=== PATIENT | female | born 1950 | race Caucasian/White ===

== ENCOUNTER 2016-12-15 09:57 | Emergency (ER) | payer MEDICARE, BC ==
[2016-12-15 12:53] VITALS: BP 164/37
--- NOTE | 2016-12-15 15:19 | EDM.PDOC ---
ED HISTORY OF PRESENT ILLNESS - General Chief Complaint: Cardiovascular Problem Stated Complaint: BLOOD PRESSURE IS OFF Time Seen by Provider: 12/15/16 10:33 Source: Reports: Patient, Other (Notes from dialysis center) History Limitations: Reports: No limitations - History of Present Illness INITIAL COMMENTS - FREE TEXT/NARRATIVE: This lady was at dialysis today and during her dialysis session date the donor floor technician noted blood pressure approximately 260/209. The patient said that at that time she also was experiencing chest heaviness. Patient says that must have lasted about 20 minutes. About 3 minutes after this elevated blood pressure her blood pressure was back to a nice normal range. The dialysis was stopped and she was sent to the clinic. She was seen in clinic and then sent over to the emergency department. The patient says that she feels fine now although a little bit worn out as usual after her dialysis. She's not had any more chest pain - Related Data Allergies/ADRs: Allergies Allergy/AdvReac Type Severity Reaction Status Date / Time No Known Allergies Allergy Verified 09/02/16 15:22 Home Meds: Home Meds Insulin Glarg,Human.Rec.Analog [Lantus Solostar] 53 unit SQ BID 08/08/15 [ History] Lisinopril [Zestril] 10 mg PO DAILY 08/08/15 [History] Sertraline [Zoloft] 100 mg PO DAILY 08/08/15 [History] atorvaSTATin [Lipitor] 20 tab PO DAILY 08/08/15 [History] Cholecalciferol (Vitamin D3) [Vitamin D3] 1,000 unit PO DAILY 12/29/15 [History] Cyanocobalamin (Vitamin B-12) [B-12] 1,000 mcg PO DAILY 12/29/15 [History] Gabapentin [Neurontin] 100 mg PO ASDIRECTED PRN 12/29/15 [History] Insulin Aspart [Novolog Flexpen] 10 unit SQ TID 12/29/15 [History] Aspirin 81 mg PO DAILY 06/29/16 [History] Clopidogrel [Plavix] 75 mg PO DAILY 06/29/16 [History] Epoetin Kevin [Epogen] 0.2 ml SUBCUT ASDIRECTED 06/29/16 [History] Calcium Acetate [PhosLo] 2,001 mg PO TID 12/15/16 [History] Ferrous Sulfate [Ferrous Sulfate] 325 mg PO BID 12/15/16 [History] Multivitamin [Multivitamins] 1 tab PO DAILY 12/15/16 [History] Nebivolol [Bystolic] 10 mg PO BID 12/15/16 [History] oxyCODONE [oxyCODONE] 5 - 10 mg PO ASDIRECTED PRN 12/15/16 [History] Past Medical History HEENT History: Reports: Impaired vision, Macular degeneration Cardiovascular History: Reports: CAD, High cholesterol, Hypertension, Stents Respiratory History: Reports: Asthma Other Respiratory History: uses Cpap. Gastrointestinal History: Reports: Colon polyp Genitourinary History: Reports: Acute renal failure, Other (see below) Other Genitourinary History: dialysis Musculoskeletal History: Reports: Fracture, Other (see below) Other Musculoskeletal History: r ankle fracture and lower leg Psychiatric History: Reports: Depression Endocrine/Metabolic History: Reports: Diabetes, type II, Obesity/BMI 30+ Hematologic History: Reports: Blood transfusion(s) Dermatologic History: Reports: Other (see below) Other Dermatologic History: Open wound rlq abdome. Draining. - Infectious Disease History Infectious Disease History: Reports: MRSA - Past Surgical History HEENT Surgical History: Reports: Cataract surgery Cardiovascular Surgical History: Reports: None Respiratory Surgical History: Reports: None GI Surgical History: Reports: Colonoscopy Female Surgical History: Reports: Hysterectomy Endocrine Surgical History: Reports: None Musculoskeletal Surgical History: Reports: None Social & Family History - Family History Family Medical History: Noncontributory - Tobacco Use Smoking Status *Q: Never Smoker Second Hand Smoke Exposure: No - Caffeine Use Caffeine Use: Reports: Coffee - Recreational Drug Use Recreational Drug Use: No ED ROS GENERAL - Review of Systems Review Of Systems: See Below Constitutional: Reports: other (Typical post dialysis fatigue) HEENT: Reports: No symptoms Respiratory: Reports: No Symptoms Cardiovascular: Reports: Chest pain Endocrine: Reports: no symptoms (See HPI) GI/Abdominal: Reports: No symptoms : Reports: no symptoms ED EXAM, GENERAL - Physical Exam Exam: See Below Exam Limited By: No limitations General Appearance: alert, no apparent distress, obese Eye Exam: bilateral eye: normal inspection Throat/Mouth: Normal inspection Head: atraumatic Respiratory/Chest: lungs clear Cardiovascular: regular rate, rhythm, no murmur Peripheral Pulses: 2+: radial (L), radial (R) GI/Abdominal: soft, non tender Back Exam: normal inspection Extremities: normal inspection, other (She's had 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 She has on a compression stocking) Neurological: alert, oriented Psychiatric: normal affect Skin Exam: Warm, Dry Course - Vital Signs Last Recorded V/S: Last Vital Signs Temp 35.5 C 12/15/16 10:10 Pulse 52 L 12/15/16 12:53 Resp 15 12/15/16 12:53 BP 164/37 H 12/15/16 12:53 Pulse Ox 95 12/15/16 12:53 - Orders/Labs/Meds Orders: Active Orders 24 hr Category Date Time Status EKG Documentation Completion [RC] ASDIRECTED Care 12/15/16 10:48 Active EKG 12 Lead [EK] Urgent Ther 12/15/16 10:48 Ordered Labs: Laboratory Tests 12/15/16 12/15/16 12/15/16 Range/Units 10:44 10:44 10:48 WBC 8.7 (4.5-11.0) K/uL RBC 3.89 (3.30-5.50) M/uL Hgb 12.7 D (12.0-15.0) g/dL Hct 38.0 (36.0-48.0) % MCV 98 (80-98) fL MCH 33 H (27-31) pg MCHC 33 (32-36) % Plt Count 195 (150-400) K/uL Neut % (Auto) 68 H (36-66) % Lymph % (Auto) 20 L (24-44) % [place] % (Auto) 6 (2-6) % Eos % (Auto) 5 H (2-4) % Baso % (Auto) 2 H (0-1) % Sodium 133 L (140-148) mmol/L Potassium 4.6 (3.6-5.2) mmol/L Chloride 92 L (100-108) mmol/L Carbon Dioxide 34 H (21-32) mmol/L Anion Gap 11.6 (5.0-14.0) mmol/L BUN 29 H (7-18) mg/dL Creatinine 4.8 H* (0.6-1.0) mg/dL Est Cr Clr Drug Dosing 10.79 mL/min Estimated GFR (MDRD) 9 L (>60) Glucose 205 H (74-106) mg/dL Calcium 9.1 (8.5-10.1) mg/dL Total Bilirubin 0.3 (0.2-1.0) mg/dL AST 16 (15-37) U/L ALT 25 (12-78) U/L Alkaline Phosphatase 54 (46-116) U/L Troponin I < 0.017 (0.000-0.056) ng/mL Total Protein 8.6 H (6.4-8.2) g/dL Albumin 3.1 L (3.4-5.0) g/dL Globulin 5.5 H (2.3-3.5) g/dL Albumin/Globulin Ratio 0.6 L (1.2-2.2) 12/15/16 Range/Units 13:00 WBC (4.5-11.0) K/uL RBC (3.30-5.50) M/uL Hgb (12.0-15.0) g/dL Hct (36.0-48.0) % MCV (80-98) fL MCH (27-31) pg MCHC (32-36) % Plt Count (150-400) K/uL Neut % (Auto) (36-66) % Lymph % (Auto) (24-44) % [place] % (Auto) (2-6) % Eos % (Auto) (2-4) % Baso % (Auto) (0-1) % Sodium (140-148) mmol/L Potassium (3.6-5.2) mmol/L Chloride (100-108) mmol/L Carbon Dioxide (21-32) mmol/L Anion Gap (5.0-14.0) mmol/L BUN (7-18) mg/dL Creatinine (0.6-1.0) mg/dL Est Cr Clr Drug Dosing mL/min Estimated GFR (MDRD) (>60) Glucose (74-106) mg/dL Calcium (8.5-10.1) mg/dL Total Bilirubin (0.2-1.0) mg/dL AST (15-37) U/L ALT (12-78) U/L Alkaline Phosphatase (46-116) U/L Troponin I < 0.017 (0.000-0.056) ng/mL Total Protein (6.4-8.2) g/dL Albumin (3.4-5.0) g/dL Globulin (2.3-3.5) g/dL Albumin/Globulin Ratio (1.2-2.2) - Re-Assessments/Exams Free Text/Narrative Re-Assessment/Exam: 12/15/16 15:17 an EKG shows a sinus rhythm at 50 beats per minute first-degree AV block QRS is indicate an old inferior or lateral anterior infarct view of QRSs appear to be unchanged from EKG of 07/28/2016 although the infarcts were not noted on the previous EKG. Free Text/Narrative Re-Assessment/Exam: 12/15/16 15:18 The patient was observed here in the ER she has not had any more chest pain her vital said been okay. A initial and 2 hour troponin are both negative. Her discharge from the ER was delayed because of another critical patient Departure - Departure Time of Disposition: 15:19 Disposition: Home, Self-Care 01 Condition: fair Clinical Impression: Chest pain Forms: ED Department Discharge Additional Instructions: Continue all your usual medications and return to dialysis on Tuesday as planned - My Orders Last 24 Hours: My Active Orders 12/15/16 10:48 EKG Documentation Completion [RC] ASDIRECTED EKG 12 Lead [EK] Urgent - Assessment/Plan Last 24 Hours: My Active Orders 12/15/16 10:48 EKG Documentation Completion [RC] ASDIRECTED EKG 12 Lead [EK] Urgent
== END 2016-12-15 15:44 | disposition home or self-care (01) ==
LOC: JP.ED 09:57
DX: R07.9 Chest pain, unspecified (principal); I25.10 Atherosclerotic heart disease of native coronary artery without angina pectoris; E78.00 Pure hypercholesterolemia, unspecified; I10 Essential (primary) hypertension; J45.909 Unspecified asthma, uncomplicated; E11.9 Type 2 diabetes mellitus without complications; E66.9 Obesity, unspecified; Z98.49 Cataract extraction status, unspecified eye; Z90.710 Acquired absence of both cervix and uterus; Z79.4 Long term (current) use of insulin; Z79.82 Long term (current) use of aspirin
CPT/HCPCS: 36415; 80053; 84484; 85025; 93005; 93010; 99284; 99284-25

== ENCOUNTER 2016-12-27 10:06 | Emergency (ER) | payer MEDICARE, BC ==
--- NOTE | 2016-12-27 10:49 | EDM.PDOC ---
ED HISTORY OF PRESENT ILLNESS - General Chief Complaint: Chest Pain Stated Complaint: CHEST PAIN, LOW BLOOD PRESSURE Time Seen by Provider: 12/27/16 10:26 Source: Reports: Patient, Family, Old records, RN notes reviewed History Limitations: Reports: No limitations - History of Present Illness INITIAL COMMENTS - FREE TEXT/NARRATIVE: 66-year-old female presents emergency Department day complaint of chest pressure , she has no history of coronary artery disease had stenting done summer , she also has end-stage renal disease and was currently going through dialysis , during the dialysis run she developed chest pressure with nausea, shortness of breath and clammy feeling lasted 20-25 minutes, she was provided 4 baby aspirin EMS services were called chest pressure has resolved without any other intervention at this time she is asymptomatic. She has known history of small vessel disease - Related Data Allergies/ADRs: Allergies Allergy/AdvReac Type Severity Reaction Status Date / Time No Known Allergies Allergy Verified 12/27/16 10:16 Home Meds: Home Meds Insulin Glarg,Human.Rec.Analog [Lantus Solostar] 53 unit SQ BID 08/08/15 [ History] Lisinopril [Zestril] 10 mg PO DAILY 08/08/15 [History] Sertraline [Zoloft] 100 mg PO DAILY 08/08/15 [History] atorvaSTATin [Lipitor] 20 tab PO DAILY 08/08/15 [History] Cholecalciferol (Vitamin D3) [Vitamin D3] 1,000 unit PO DAILY 12/29/15 [History] Cyanocobalamin (Vitamin B-12) [B-12] 1,000 mcg PO DAILY 12/29/15 [History] Gabapentin [Neurontin] 100 mg PO ASDIRECTED PRN 12/29/15 [History] Insulin Aspart [Novolog Flexpen] 10 unit SQ TID 12/29/15 [History] Aspirin 81 mg PO DAILY 06/29/16 [History] Clopidogrel [Plavix] 75 mg PO DAILY 06/29/16 [History] Epoetin Kevin [Epogen] 0.2 ml SUBCUT ASDIRECTED 06/29/16 [History] Calcium Acetate [PhosLo] 2,001 mg PO TID 12/15/16 [History] Ferrous Sulfate [Ferrous Sulfate] 325 mg PO BID 12/15/16 [History] Multivitamin [Multivitamins] 1 tab PO DAILY 12/15/16 [History] Nebivolol [Bystolic] 10 mg PO BID 12/15/16 [History] oxyCODONE [oxyCODONE] 5 - 10 mg PO ASDIRECTED PRN 12/15/16 [History] Past Medical History HEENT History: Reports: Impaired vision, Macular degeneration Cardiovascular History: Reports: CAD, High cholesterol, Hypertension, Stents Respiratory History: Reports: Asthma Other Respiratory History: uses Cpap. Gastrointestinal History: Reports: Colon polyp Genitourinary History: Reports: Acute renal failure, Dialysis Musculoskeletal History: Reports: Fracture, Other (see below) Other Musculoskeletal History: r ankle fracture and lower leg Psychiatric History: Reports: Depression Endocrine/Metabolic History: Reports: Diabetes, type II, Obesity/BMI 30+ Hematologic History: Reports: Blood transfusion(s) Dermatologic History: Reports: Other (see below) Other Dermatologic History: Open wound rlq abdome. Draining. Healed . - Infectious Disease History Infectious Disease History: Reports: Chicken pox, Shingles - Past Surgical History HEENT Surgical History: Reports: Cataract surgery Cardiovascular Surgical History: Reports: Coronary artery stent GI Surgical History: Reports: Colonoscopy Female Surgical History: Reports: Hysterectomy Endocrine Surgical History: Reports: None Musculoskeletal Surgical History: Reports: Other (see below) Other Musculoskeletal Surgeries/Procedures:: ankle surgery r Social & Family History - Family History Family Medical History: Noncontributory - Tobacco Use Smoking Status *Q: Former Smoker Years of Tobacco use: 3 Packs/Tins Daily: 0.2 Used Tobacco, but Quit: Yes Month Tobacco Last Used: March Second Hand Smoke Exposure: No - Caffeine Use Caffeine Use: Reports: Coffee, Soda - Recreational Drug Use Recreational Drug Use: No ED ROS GENERAL - Review of Systems Review Of Systems: See Below Constitutional: Reports: diaphoresis HEENT: Reports: No symptoms Respiratory: Reports: Shortness of Breath Cardiovascular: Reports: Chest pain GI/Abdominal: Reports: Nausea : Reports: no symptoms Musculoskeletal: Reports: no symptoms Skin: Reports: no symptoms ED EXAM, GENERAL - Physical Exam Exam: See Below Free Text/Narrative:: General: Female, not in any distress, alert and oriented x3 HEENT: head is atraumatic normocephalic, eyes pupils equal round reactive to light, sclera clear no conjunctivitis appreciated. Ears tympanic membranes clear and masters landmarks and light reflex are present bilaterally canals are clear. Nose no septal deviation, nares are clear, no blood present. Mouth mucosa is moist and pink no erythema or exudate noted in soft palate, tongue is midline uvula is midline, dentition is intact. Neck: Supple no thyromegaly no tracheal deviation. Nodes: Cervical nodes subclavicular nodes nontender no palpable lymphadenopathy noted. Lungs: clear to auscultation bilaterally with symmetrical respirations, no adventitious noise appreciated. CV: Regular rate and rhythm S1 and S2 appreciated no murmurs rubs or gallops noted. Abdomen: Soft, obese, nontender, no palpable masses or organomegaly appreciated , no distention no guarding bowel sounds are present, . Neuro: Cranial nerves II through XII grossly intact Skin: Warm and dry, intact Extremities: No significant edema appreciated lower extremities right leg has a healing ulcer digits missing on the right foot Course - Vital Signs Last Recorded V/S: Last Vital Signs Temp 95.9 F 12/27/16 11:20 Pulse 54 L 12/27/16 11:20 Resp 16 12/27/16 11:20 BP 130/54 L 12/27/16 11:20 Pulse Ox 92 L 12/27/16 11:20 - Orders/Labs/Meds Orders: Active Orders 24 hr Category Date Time Status Cardiac Monitoring [RC] .As Directed Care 12/27/16 10:45 Active EKG Documentation Completion [RC] ASDIRECTED Care 12/27/16 10:45 Active Peripheral IV Care [RC] . DIRECTED Care 12/27/16 11:51 Ordered Sodium Chloride 0.9% [Saline Flush] Med 12/27/16 11:51 Ordered 10 ml FLUSH ASDIRECTED PRN Peripheral IV Insertion Adult [OM.PC] Urgent Oth 12/27/16 11:51 Ordered EKG 12 Lead [EK] Stat Ther 12/27/16 10:45 Ordered Medication Orders Sodium Chloride (Saline Flush) 10 ml FLUSH ASDIRECTED PRN PRN Reason: Keep Vein Open Labs: Laboratory Tests 12/27/16 12/27/16 Range/Units 10:50 10:50 WBC 8.7 (4.5-11.0) K/uL RBC 3.62 (3.30-5.50) M/uL Hgb 11.8 L (12.0-15.0) g/dL Hct 35.3 L (36.0-48.0) % MCV 98 (80-98) fL MCH 33 H (27-31) pg MCHC 33 (32-36) % Plt Count 178 (150-400) K/uL Neut % (Auto) 74 H (36-66) % Lymph % (Auto) 15 L (24-44) % [place] % (Auto) 6 (2-6) % Eos % (Auto) 4 (2-4) % Baso % (Auto) 1 (0-1) % Sodium 135 L (140-148) mmol/L Potassium 4.2 (3.6-5.2) mmol/L Chloride 93 L (100-108) mmol/L Carbon Dioxide 35 H (21-32) mmol/L Anion Gap 11.2 (5.0-14.0) mmol/L BUN 28 H (7-18) mg/dL Creatinine 4.9 H* (0.6-1.0) mg/dL Est Cr Clr Drug Dosing 10.57 mL/min Estimated GFR (MDRD) 9 L (>60) Glucose 184 H (74-106) mg/dL Calcium 8.9 (8.5-10.1) mg/dL Total Bilirubin 0.3 (0.2-1.0) mg/dL AST 13 L (15-37) U/L ALT 23 (12-78) U/L Alkaline Phosphatase 66 (46-116) U/L CK-MB (CK-2) 0.2 (0-3.6) mg/mL Troponin I 0.045 (0.000-0.056) ng/mL Total Protein 8.0 (6.4-8.2) g/dL Albumin 2.9 L (3.4-5.0) g/dL Globulin 5.1 H (2.3-3.5) g/dL Albumin/Globulin Ratio 0.6 L (1.2-2.2) Meds: Medications Generic Name Dose Route Start Last Admin Trade Name Freq PRN Reason Stop Dose Admin Sodium Chloride 10 ml 12/27/16 11:51 Saline Flush FLUSH ASDIRECTED PRN Keep Vein Open Departure - Departure Time of Disposition: 11:58 Disposition: DC/Tfer to Acute Hospital 02 Reason for Transfer *Q: Other Condition: good Clinical Impression: Acute coronary syndrome Forms: ED Department Discharge - My Orders Last 24 Hours: My Active Orders 12/27/16 10:45 Cardiac Monitoring [RC] .As Directed EKG Documentation Completion [RC] ASDIRECTED EKG 12 Lead [EK] Stat 12/27/16 11:51 Peripheral IV Care [RC] . DIRECTED Sodium Chloride 0.9% [Saline Flush] 10 ml FLUSH ASDIRECTED PRN Peripheral IV Insertion Adult [OM.PC] Urgent - Assessment/Plan Last 24 Hours: My Active Orders 12/27/16 10:45 Cardiac Monitoring [RC] .As Directed EKG Documentation Completion [RC] ASDIRECTED EKG 12 Lead [EK] Stat 12/27/16 11:51 Peripheral IV Care [RC] . DIRECTED Sodium Chloride 0.9% [Saline Flush] 10 ml FLUSH ASDIRECTED PRN Peripheral IV Insertion Adult [OM.PC] Urgent Plan: Assessment Acuity = acute Site and laterality = coronary syndrome complicating the patient with known history of coronary artery disease, end-stage renal disease on dialysis, diabetes mellitus type 2, hypertension and dyslipidemia Etiology = probable small vessel disease Manifestations = pain, syncope Location of injury = home Lab values = hemoglobin low 11.8 consistent with normochromic anemia sodium low at 135 consistent hyponatremia creatinine elevated at 4.9 consistent chronic renal failure stage CVD, troponin within normal limits 0.045 albumin low at 2.9 consistent hypoalbuminemia, chest x-ray shows no acute process EKG does demonstrate a left bundle branch block and left axis deviation the bundle branch block appears on the 12-15-16 EKG Plan Called and discussed the case with Dr. Treviño hospitalist at [facility] excepted the patient, she will be transferred via EMS services ground Patient was in agreement with the plan all questions were answered This note was dictated using [employer] voice recognition software please call with any questions.
--- NOTE | 2016-12-27 11:07 | CR ---
Chest 1V Frontal HISTORY: Chest pain COMPARISON: Chest x-ray 07/28/2016. FINDINGS: Rotated film to the left. Cardiac size is stable. No acute congestive change or infiltrate s seen.
[2016-12-27] MEDS ORDERED: Sodium Chloride 0.9% 10 ML Syringe FLUSH PRN (11:51)
[2016-12-27 12:44] VITALS: BP 123/31
== END 2016-12-27 12:48 ==
LOC: JP.ED 10:06
DX: I24.9 Acute ischemic heart disease, unspecified (principal); I25.10 Atherosclerotic heart disease of native coronary artery without angina pectoris; I10 Essential (primary) hypertension; E78.00 Pure hypercholesterolemia, unspecified; J45.909 Unspecified asthma, uncomplicated; F32.9 Major depressive disorder, single episode, unspecified; E11.9 Type 2 diabetes mellitus without complications; E66.9 Obesity, unspecified; Z68.42 Body mass index [BMI] 45.0-49.9, adult; Z95.5 Presence of coronary angioplasty implant and graft; Z90.710 Acquired absence of both cervix and uterus; Z98.49 Cataract extraction status, unspecified eye; Z98.890 Other specified postprocedural states; Z87.891 Personal history of nicotine dependence; Z79.4 Long term (current) use of insulin; Z79.82 Long term (current) use of aspirin; Z79.02 Long term (current) use of antithrombotics/antiplatelets; Z79.899 Other long term (current) drug therapy
CPT/HCPCS: 36415; 71010; 80053; 82553; 84484; 85025; 93005; 99285; J7050; 93010

== ENCOUNTER 2016-12-31 10:54 | Emergency (ER) | payer MEDICARE, BC ==
[2016-12-31] MEDS ORDERED: Sodium Chloride 0.9% 1,000 ML IV SCH (11:30)
--- NOTE | 2016-12-31 12:33 | EDM.PDOC ---
[id number] [facility] Time Seen by Provider: 12/31/16 11:05 Source: Reports: Patient, Family History Limitations: Reports: No limitations - History of Present Illness INITIAL COMMENTS - FREE TEXT/NARRATIVE: Pt was seen earlier in the week and she had a near syncopal episode that was accompanied by some mild chest pain. She was sent to [facility]. and was placed on imdur. During her dialysis today she took the imdur. Her meds were not altered at [place]. This am she had a similar episode and nearly passed., out. She arrived with a low bp which got even lower whwn she stood up. Timing/Duration: Reports: minutes: Event Occurred (Where): other (dialysis) Event (Witnessed/Unwitnessed): witnessed Pre Event Symptom(s): Reports: other ( brief syncope. This has happened 2 other times either during or right after dialysis. ) Event Symptoms: Reports: syncope, weakness - Related Data Allergies/ADRs: Allergies Allergy/AdvReac Type Severity Reaction Status Date / Time No Known Allergies Allergy Verified 12/27/16 10:16 Home Meds: Home Meds Insulin Glarg,Human.Rec.Analog [Lantus Solostar] 53 unit SQ BID 08/08/15 [ History] Lisinopril [Zestril] 10 mg PO DAILY 08/08/15 [History] Sertraline [Zoloft] 100 mg PO DAILY 08/08/15 [History] atorvaSTATin [Lipitor] 20 tab PO DAILY 08/08/15 [History] Cholecalciferol (Vitamin D3) [Vitamin D3] 1,000 unit PO DAILY 12/29/15 [History] Cyanocobalamin (Vitamin B-12) [B-12] 1,000 mcg PO DAILY 12/29/15 [History] Gabapentin [Neurontin] 100 mg PO ASDIRECTED PRN 12/29/15 [History] Insulin Aspart [Novolog Flexpen] 10 unit SQ TID 12/29/15 [History] Aspirin 81 mg PO DAILY 06/29/16 [History] Clopidogrel [Plavix] 75 mg PO DAILY 06/29/16 [History] Epoetin Kevin [Epogen] 0.2 ml SUBCUT ASDIRECTED 06/29/16 [History] Calcium Acetate [PhosLo] 2,001 mg PO TID 12/15/16 [History] Ferrous Sulfate [Ferrous Sulfate] 325 mg PO BID 12/15/16 [History] Multivitamin [Multivitamins] 1 tab PO DAILY 12/15/16 [History] Nebivolol [Bystolic] 10 mg PO BID 12/15/16 [History] oxyCODONE [oxyCODONE] 5 - 10 mg PO ASDIRECTED PRN 12/15/16 [History] Isosorbide Mononitrate [Imdur] 1 tab PEGTUBE DAILY 12/31/16 [History] Past Medical History HEENT History: Reports: Impaired vision, Macular degeneration Cardiovascular History: Reports: CAD, High cholesterol, Hypertension, Stents Respiratory History: Reports: Asthma Other Respiratory History: uses Cpap. Gastrointestinal History: Reports: Colon polyp Genitourinary History: Reports: Acute renal failure, Dialysis Other Genitourinary History: dialysis Musculoskeletal History: Reports: Fracture, Other (see below) Other Musculoskeletal History: r ankle fracture and lower leg Psychiatric History: Reports: Depression Endocrine/Metabolic History: Reports: Diabetes, type II, Obesity/BMI 30+ Hematologic History: Reports: Blood transfusion(s) Dermatologic History: Reports: Other (see below) Other Dermatologic History: Open wound rlq abdome. Draining. Healed . - Infectious Disease History Infectious Disease History: Reports: Chicken pox, Shingles - Past Surgical History HEENT Surgical History: Reports: Cataract surgery Cardiovascular Surgical History: Reports: Coronary artery stent GI Surgical History: Reports: Colonoscopy Female Surgical History: Reports: Hysterectomy Endocrine Surgical History: Reports: None Musculoskeletal Surgical History: Reports: Other (see below) Other Musculoskeletal Surgeries/Procedures:: ankle surgery r Social & Family History - Family History Family Medical History: Noncontributory - Tobacco Use Smoking Status *Q: Never Smoker Years of Tobacco use: 3 Packs/Tins Daily: 0.2 Used Tobacco, but Quit: Yes Month Tobacco Last Used: March Hand Smoke Exposure: No - Caffeine Use Caffeine Use: Reports: Coffee, Soda - Recreational Drug Use Recreational Drug Use: No ED ROS GENERAL - Review of Systems Review Of Systems: See Below Constitutional: Reports: weakness HEENT: Reports: No symptoms Respiratory: Reports: No Symptoms Cardiovascular: Reports: No symptoms Endocrine: Reports: no symptoms GI/Abdominal: Reports: No symptoms : Reports: no symptoms Musculoskeletal: Reports: hand pain Skin: Reports: no symptoms - Physical Exam Exam: See Below Text/Narrative:: pt had a near syncopal episode toward the end of dialysis. Exam Limited By: No limitations General Appearance: alert, no apparent distress Ears: normal TMs Nose: normal inspection Throat/Mouth: Normal inspection Head Exam: atraumatic Neck: normal inspection Respiratory/Chest: no respiratory distress Cardiovascular: regular rate, rhythm GI/Abdominal: soft, non tender (Female) Exam: Deferred Rectal (Female) Exam: Deferred Neuro Exam (Abbreviated): alert, oriented, normal cognition Back Exam: normal inspection Extremities: normal inspection Psychiatric: normal affect Course - Vital Signs Last Recorded V/S: Last Vital Signs Temp 36.3 C 12/31/16 14:02 Pulse 53 L 12/31/16 14:02 Resp 14 12/31/16 14:02 BP 106/31 L 12/31/16 14:02 Pulse Ox 97 12/31/16 14:02 Orthostatic Blood Pressure [ 108/77 Sitting] Orthostatic Blood Pressure [ 123/44 Supine] - Orders/Labs/Meds Labs: Laboratory Tests 12/31/16 12/31/16 Range/Units 11:25 11:25 WBC 7.8 (4.5-11.0) K/uL RBC 3.80 (3.30-5.50) M/uL Hgb 12.1 (12.0-15.0) g/dL Hct 36.9 (36.0-48.0) % MCV 97 (80-98) fL MCH 32 H (27-31) pg MCHC 33 (32-36) % Plt Count 196 (150-400) K/uL Neut % (Auto) 70 H (36-66) % Lymph % (Auto) 18 L (24-44) % [place] % (Auto) 8 H (2-6) % Eos % (Auto) 4 (2-4) % Baso % (Auto) 1 (0-1) % Sodium 136 L (140-148) mmol/L Potassium 3.8 (3.6-5.2) mmol/L Chloride 93 L (100-108) mmol/L Carbon Dioxide 35 H (21-32) mmol/L Anion Gap 11.8 (5.0-14.0) mmol/L BUN 17 (7-18) mg/dL Creatinine 3.7 H* (0.6-1.0) mg/dL Est Cr Clr Drug Dosing 14.00 mL/min Estimated GFR (MDRD) 12 L (>60) Glucose 141 H (74-106) mg/dL Calcium 9.0 (8.5-10.1) mg/dL Total Bilirubin 0.3 (0.2-1.0) mg/dL AST 20 (15-37) U/L ALT 30 (12-78) U/L Alkaline Phosphatase 75 (46-116) U/L Total Protein 9.2 H (6.4-8.2) g/dL Albumin 3.3 L (3.4-5.0) g/dL Globulin 5.9 H (2.3-3.5) g/dL Albumin/Globulin Ratio 0.6 L (1.2-2.2) Meds: Medications Discontinued Medications Generic Name Dose Route Start Last Admin Trade Name Freq PRN Reason Stop Dose Admin Sodium Chloride 1,000 mls @ 200 mls/hr 12/31/16 11:30 12/31/16 11:50 Normal Saline IV 200 mls/hr ASDIRECTED COUNT INCLUDES THE [facility] Administration - Re-Assessments/Exams Free Text/Narrative Re-Assessment/Exam: 12/31/16 13:16 Pt was found to have a sig drop in bp and had low orthostatic bp reading. She did start dialysis today with a high bp. 12/31/16 13:22 Pt had good labs except her creatnine was 3.7 which was not unexpected. She was given 700 cc of fluid. Her bp was 120,50 and with standing 80./40, Departure - Departure Time of Disposition: 13:24 Disposition: Home, Self-Care 01 Condition: fair Clinical Impression: Hypotension Instructions: Hypotension, [id number] Referrals: Med Omalley MD [Primary Care Provider] - Forms: ED Department Discharge Care Plan Goals: On the day of dialysis decrease her lisinopril to 1/2 tab. Do not take the imdur during dialysis. On the day of dialysis take imdur 1/2 tab in the evening. Have the net ui developer evaluate and consider taking a little less fluid off. Otherwise continue meds the same.
[2016-12-31 14:03] VITALS: BP 106/31
== END 2016-12-31 14:06 | disposition home or self-care (01) ==
LOC: JP.ED 10:54
DX: I95.9 Hypotension, unspecified (principal); I10 Essential (primary) hypertension; I25.10 Atherosclerotic heart disease of native coronary artery without angina pectoris; E78.00 Pure hypercholesterolemia, unspecified; E11.9 Type 2 diabetes mellitus without complications; E66.9 Obesity, unspecified; Z68.42 Body mass index [BMI] 45.0-49.9, adult; Z79.4 Long term (current) use of insulin; Z79.82 Long term (current) use of aspirin; Z79.899 Other long term (current) drug therapy; Z98.49 Cataract extraction status, unspecified eye; Z95.5 Presence of coronary angioplasty implant and graft; Z90.710 Acquired absence of both cervix and uterus; Z98.890 Other specified postprocedural states
CPT/HCPCS: 36415; 80053; 85025; 96360; 96361; 99284; J7040; 99283

== ENCOUNTER 2017-07-04 11:43 | Emergency (ER) | payer MEDICARE, BC ==
[2017-07-04 12:15] VITALS: BP 104/75
--- NOTE | 2017-07-04 12:44 | EDM.PDOC ---
ED HPI GENERAL MEDICAL PROBLEM - General Chief Complaint: General Stated Complaint: FROM [facility] Time Seen by Provider: 07/04/17 12:43 Source of Information: Reports: Patient, RN Notes Reviewed History Limitations: Reports: No Limitations - History of Present Illness INITIAL COMMENTS - FREE TEXT/NARRATIVE: 66-year-old female presents emergency department today with complaint of chest pressure, she is currently on dialysis she states she's been having chest pressure during dialysis run for the last 6 months it happens after 2 hours into the run she gets chest pressure it is relieved approximately 2 hours after her dialysis run is completed she is asymptomatic at this time - Related Data Allergies Allergy/AdvReac Type Severity Reaction Status Date / Time No Known Allergies Allergy Verified 12/27/16 10:16 Home Meds: Home Meds Insulin Glarg,Human.Rec.Analog [Lantus Solostar] 53 unit SQ BID 08/08/15 [ History] Lisinopril [Zestril] 10 mg PO DAILY 08/08/15 [History] Sertraline [Zoloft] 100 mg PO DAILY 08/08/15 [History] atorvaSTATin [Lipitor] 20 tab PO DAILY 08/08/15 [History] Cholecalciferol (Vitamin D3) [Vitamin D3] 1,000 unit PO DAILY 12/29/15 [History] Cyanocobalamin (Vitamin B-12) [B-12] 1,000 mcg PO DAILY 12/29/15 [History] Gabapentin [Neurontin] 100 mg PO ASDIRECTED PRN 12/29/15 [History] Insulin Aspart [Novolog Flexpen] 10 unit SQ TID 12/29/15 [History] Aspirin 81 mg PO DAILY 06/29/16 [History] Clopidogrel [Plavix] 75 mg PO DAILY 06/29/16 [History] Epoetin Kevin [Epogen] 0.2 ml SUBCUT ASDIRECTED 06/29/16 [History] Calcium Acetate [PhosLo] 2,001 mg PO TID 12/15/16 [History] Ferrous Sulfate [Ferrous Sulfate] 325 mg PO BID 12/15/16 [History] Multivitamin [Multivitamins] 1 tab PO DAILY 12/15/16 [History] Nebivolol [Bystolic] 10 mg PO BID 12/15/16 [History] oxyCODONE [oxyCODONE] 5 - 10 mg PO ASDIRECTED PRN 12/15/16 [History] Isosorbide Mononitrate [Imdur] 1 tab PEGTUBE DAILY 12/31/16 [History] Past Medical History HEENT History: Reports: Impaired Vision, Macular Degeneration Cardiovascular History: Reports: CAD, High Cholesterol, Hypertension, Stents Respiratory History: Reports: Asthma Other Respiratory History: uses Cpap. Gastrointestinal History: Reports: Colon Polyp Genitourinary History: Reports: Acute Renal Failure, Dialysis Other Genitourinary History: dialysis Musculoskeletal History: Reports: Fracture, Other (See Below) Other Musculoskeletal History: r ankle fracture and lower leg Psychiatric History: Reports: Depression Endocrine/Metabolic History: Reports: Diabetes, Type II, Obesity/BMI 30+ Hematologic History: Reports: Blood Transfusion(s) Dermatologic History: Reports: Other (See Below) Other Dermatologic History: Open wound rlq abdome. Draining. Healed . - Infectious Disease History Infectious Disease History: Reports: Chicken Pox, Shingles - Past Surgical History HEENT Surgical History: Reports: Cataract Surgery Cardiovascular Surgical History: Reports: Coronary Artery Stent Musculoskeletal Surgical History: Reports: Other (See Below) Social & Family History - Family History Family Medical History: Noncontributory - Tobacco Use Smoking Status *Q: Never Smoker Years of Tobacco use: 3 Packs/Tins Daily: 0.2 Used Tobacco, but Quit: Yes Month Tobacco Last Used: March Second Hand Smoke Exposure: No - Caffeine Use Caffeine Use: Reports: Coffee - Recreational Drug Use Recreational Drug Use: No ED ROS GENERAL - Review of Systems Review Of Systems: See Below Constitutional: Reports: No Symptoms HEENT: Reports: No Symptoms Respiratory: Reports: Shortness of Breath Cardiovascular: Reports: Chest Pain GI/Abdominal: Reports: No Symptoms : Reports: No Symptoms Musculoskeletal: Reports: No Symptoms Skin: Reports: No Symptoms ED EXAM, GENERAL - Physical Exam Exam: See Below Exam Limited By: No Limitations General Appearance: Alert, WD/WN, No Apparent Distress Respiratory/Chest: No Respiratory Distress, Lungs Clear, Normal Breath Sounds, No Accessory Muscle Use Cardiovascular: Regular Rate, Rhythm, No Murmur Course - Vital Signs Last Recorded V/S: Last Vital Signs Temp 97.2 F 07/04/17 12:15 Pulse 57 L 07/04/17 12:15 Resp 18 07/04/17 12:15 BP 104/75 07/04/17 12:15 Pulse Ox 93 L 07/04/17 12:15 - Orders/Labs/Meds Orders: Active Orders 24 hr Category Date Time Status Cardiac Monitoring [RC] .As Directed Care 07/04/17 12:42 Active EKG Documentation Completion [RC] ASDIRECTED Care 07/04/17 12:42 Active EKG 12 Lead [EK] Stat Ther 07/04/17 12:42 Ordered Labs: Laboratory Tests 07/04/17 07/04/17 Range/Units 12:52 12:52 WBC 8.3 (4.5-11.0) K/uL RBC 3.49 (3.30-5.50) M/uL Hgb 11.4 L (12.0-15.0) g/dL Hct 34.5 L (36.0-48.0) % MCV 99 H (80-98) fL MCH 33 H (27-31) pg MCHC 33 (32-36) % Plt Count 171 (150-400) K/uL Neut % (Auto) 75 H (36-66) % Lymph % (Auto) 14 L (24-44) % [place] % (Auto) 7 H (2-6) % Eos % (Auto) 3 (2-4) % Baso % (Auto) 1 (0-1) % Sodium 136 L (140-148) mmol/L Potassium 4.3 (3.6-5.2) mmol/L Chloride 95 L (100-108) mmol/L Carbon Dioxide 34 H (21-32) mmol/L Anion Gap 11.3 (5.0-14.0) mmol/L BUN 23 H (7-18) mg/dL Creatinine 4.1 H* (0.6-1.0) mg/dL Est Cr Clr Drug Dosing 12.70 mL/min Estimated GFR (MDRD) 11 L (>60) Glucose 201 H (74-106) mg/dL Calcium 9.0 (8.5-10.1) mg/dL Total Bilirubin 0.3 (0.2-1.0) mg/dL AST 12 L (15-37) U/L ALT 19 (12-78) U/L Alkaline Phosphatase 74 (46-116) U/L Creatine Kinase 29 (26-192) U/L CK-MB (CK-2) 0.5 (0-3.6) mg/mL Troponin I < 0.017 (0.000-0.056) ng/mL Total Protein 7.9 (6.4-8.2) g/dL Albumin 3.0 L (3.4-5.0) g/dL Globulin 4.9 H (2.3-3.5) g/dL Albumin/Globulin Ratio 0.6 L (1.2-2.2) Departure - Departure Time of Disposition: 13:44 Disposition: Home, Self-Care 01 Condition: Fair Clinical Impression: Demand ischemia - Discharge Information Referrals: Med Omalley MD [Primary Care Provider] - Forms: ED Department Discharge Additional Instructions: Please follow-up with your motor vehicle emissions inspector on Tuesday and discussed the possibility of changing your dialysis run to account your increasing chest pressure with dialysis, call or return to the emergency department worsening of symptoms - My Orders Last 24 Hours: My Active Orders 07/04/17 12:42 Cardiac Monitoring [RC] .As Directed EKG Documentation Completion [RC] ASDIRECTED EKG 12 Lead [EK] Stat - Assessment/Plan Last 24 Hours: My Active Orders 07/04/17 12:42 Cardiac Monitoring [RC] .As Directed EKG Documentation Completion [RC] ASDIRECTED EKG 12 Lead [EK] Stat Plan: Assessment Acuity = acute Site and laterality = chest pressure with dialysis run, again the patient with known history coronary artery disease Etiology = probable demand ischemia Manifestations = none Location of injury = Home Lab values = hemoglobin low 11.4 consistent with the 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 This note was dictated using [employer] voice recognition software please call with any questions.
== END 2017-07-04 13:55 | disposition home or self-care (01) ==
LOC: JP.ED 11:43
DX: I24.8 Other forms of acute ischemic heart disease (principal); E78.00 Pure hypercholesterolemia, unspecified; I25.10 Atherosclerotic heart disease of native coronary artery without angina pectoris; I10 Essential (primary) hypertension; J45.909 Unspecified asthma, uncomplicated; F32.9 Major depressive disorder, single episode, unspecified; E11.9 Type 2 diabetes mellitus without complications; E66.9 Obesity, unspecified; Z79.4 Long term (current) use of insulin; Z79.82 Long term (current) use of aspirin; Z79.899 Other long term (current) drug therapy; Z95.5 Presence of coronary angioplasty implant and graft; Z99.2 Dependence on renal dialysis
CPT/HCPCS: 36415; 80053; 82550; 82553; 84484; 85025; 93005; 93010; 99284; 99285-25

== ENCOUNTER 2017-08-08 10:30 | Emergency (ER) | payer MEDICARE, BC ==
[2017-08-08 10:58] VITALS: BP 117/41
--- NOTE | 2017-08-08 11:21 | EDM.PDOC ---
ED HPI GENERAL MEDICAL PROBLEM - General Chief Complaint: Syncope Stated Complaint: [facility] Time Seen by Provider: 08/08/17 11:00 Source of Information: Reports: Patient, EMS, Family History Limitations: Reports: No Limitations - History of Present Illness INITIAL COMMENTS - FREE TEXT/NARRATIVE: 67-year-old female was at dialysis and developed chest pain at the end of her dialysis run. This is a very consistent recurring problem that has been assessed by cardiology. They felt it may be worthwhile to try a sublingual nitroglycerin, she had 10 minutes left in her run today when she was having some persistent chest discomfort so they gave her a dose of nitroglycerin. It caused significant hypotension and syncope, so the ambulance was called and she was sent to the emergency room. Her symptoms have since resolved, she feels back to baseline and wants to be discharged. She has no fever or chills, no nausea or vomiting. The chest pain is gone but typically it would've been gone without the nitroglycerin as well. Onset: Gradual (Towards the end of her dialysis treatment) Location: Reports: Chest Quality: Reports: Pressure Severity: Moderate Associated Symptoms: Reports: Syncope (After the nitroglycerin). Denies: Shortness of Breath Headache Pain Score (Numeric/FACES): 5 - Related Data Allergies Allergy/AdvReac Type Severity Reaction Status Date / Time No Known Allergies Allergy Verified 08/08/17 14:20 Home Meds: Home Meds Insulin Glarg,Human.Rec.Analog [Lantus Solostar] 54 unit SQ BID 08/08/15 [ History] Lisinopril [Zestril] 10 mg PO DAILY 08/08/15 [History] Sertraline [Zoloft] 100 mg PO DAILY 08/08/15 [History] atorvaSTATin [Lipitor] 20 tab PO DAILY 08/08/15 [History] Cyanocobalamin (Vitamin B-12) [B-12] 1,000 mcg PO DAILY 12/29/15 [History] Gabapentin [Neurontin] 100 mg PO ASDIRECTED PRN 12/29/15 [History] Insulin Aspart [Novolog Flexpen] 10 unit SQ TID 12/29/15 [History] Aspirin 81 mg PO DAILY 06/29/16 [History] Epoetin Kevin [Epogen] 0.2 ml SUBCUT ASDIRECTED 06/29/16 [History] Calcium Acetate [PhosLo] 2,001 mg PO TID 12/15/16 [History] Ferrous Sulfate [Ferrous Sulfate] 325 mg PO BID 12/15/16 [History] Multivitamin [Multivitamins] 1 tab PO DAILY 12/15/16 [History] Nebivolol [Bystolic] 10 mg PO BID 12/15/16 [History] Isosorbide Mononitrate [Imdur] 1 tab PEGTUBE DAILY 12/31/16 [History] Past Medical History HEENT History: Reports: Impaired Vision, Macular Degeneration Cardiovascular History: Reports: CAD, High Cholesterol, Hypertension, Stents Respiratory History: Reports: Asthma Other Respiratory History: uses Cpap. Gastrointestinal History: Reports: Colon Polyp Genitourinary History: Reports: Acute Renal Failure, Dialysis Other Genitourinary History: dialysis Musculoskeletal History: Reports: Fracture, Other (See Below) Other Musculoskeletal History: r ankle fracture and lower leg Psychiatric History: Reports: Depression Endocrine/Metabolic History: Reports: Diabetes, Type II, Obesity/BMI 30+ Hematologic History: Reports: Blood Transfusion(s) Dermatologic History: Reports: Other (See Below) Other Dermatologic History: Open wound rlq abdome. Draining. Healed . - Infectious Disease History Infectious Disease History: Reports: Chicken Pox, Shingles - Past Surgical History HEENT Surgical History: Reports: Cataract Surgery Cardiovascular Surgical History: Reports: Coronary Artery Stent Musculoskeletal Surgical History: Reports: Other (See Below) Social & Family History - Family History Family Medical History: Noncontributory - Tobacco Use Smoking Status *Q: Never Smoker Years of Tobacco use: 3 Packs/Tins Daily: 0.2 Used Tobacco, but Quit: Yes Month Tobacco Last Used: March Second Hand Smoke Exposure: No - Caffeine Use Caffeine Use: Reports: Coffee - Recreational Drug Use Recreational Drug Use: No ED ROS GENERAL - Review of Systems Review Of Systems: See Below Constitutional: Reports: Weakness. Denies: Fever, Chills Respiratory: Denies: Shortness of Breath Cardiovascular: Reports: Chest Pain GI/Abdominal: Denies: Nausea, Vomiting Neurological: Reports: Headache (She developed a headache after the nitroglycerin) Psychiatric: Reports: No Symptoms - Physical Exam Exam: See Below Exam Limited By: No Limitations General Appearance: Alert, No Apparent Distress Eye Exam: Bilateral Eye: EOMI Respiratory/Chest: No Respiratory Distress, Lungs Clear Cardiovascular: Regular Rate, Rhythm GI/Abdominal: Non-Tender Neuro Exam (Abbreviated): Alert, Oriented Psychiatric: Normal Affect, Normal Mood Skin Exam: Warm, Dry Course - Vital Signs Last Recorded V/S: Last Vital Signs Temp 96.3 F 08/08/17 10:53 Pulse 63 08/08/17 10:53 Resp 18 08/08/17 10:53 BP 117/41 L 08/08/17 10:53 Pulse Ox 91 L 08/08/17 10:53 - Re-Assessments/Exams Free Text/Narrative Re-Assessment/Exam: 08/08/17 11:19 Vitals are all normal and symptoms have resolved. She nearly finished her dialysis run so can resume her schedule on Tuesday. She can return to ER anytime if symptoms recur, she may want to discuss the nitroglycerin treatment with cardiology or nephrology before any further doses. Departure - Departure Time of Disposition: 11:42 Disposition: Home, Self-Care 01 Condition: Fair Clinical Impression: Syncope Qualifiers: Syncope type: unspecified Qualified Code(s): R55 - Syncope and collapse - Discharge Information Instructions: Hypotension, [id number], Nitroglycerin sublingual tablets, Syncope, [id number] Referrals: Med Omalley MD [Primary Care Provider] - Forms: ED Department Discharge Care Plan Goals: Consider discussing nitroglycerin treatment with cardiology or nephrology before further doses. Increase activity as tolerated, continue your other medications and return anytime if worsening or concerns. Resume dialysis schedule on Tuesday.
== END 2017-08-08 11:43 | disposition home or self-care (01) ==
LOC: JP.ED 10:30
DX: R55 Syncope and collapse (principal); I10 Essential (primary) hypertension; I25.10 Atherosclerotic heart disease of native coronary artery without angina pectoris; E11.9 Type 2 diabetes mellitus without complications; F32.9 Major depressive disorder, single episode, unspecified; Z99.2 Dependence on renal dialysis; Z95.5 Presence of coronary angioplasty implant and graft; Z87.891 Personal history of nicotine dependence; Z79.4 Long term (current) use of insulin; Z79.899 Other long term (current) drug therapy
CPT/HCPCS: 99284

== ENCOUNTER 2017-08-08 14:10 | Emergency (ER) | payer MEDICARE, BC ==
[2017-08-08 14:19] VITALS: BP 114/79
--- NOTE | 2017-08-08 15:23 | EDM.PDOC ---
ED HPI GENERAL MEDICAL PROBLEM - General Chief Complaint: Gastrointestinal Problem Stated Complaint: Constipation Time Seen by Provider: 08/08/17 14:35 Source of Information: Reports: Patient, Family History Limitations: Reports: No Limitations - History of Present Illness INITIAL COMMENTS - FREE TEXT/NARRATIVE: 67-year-old female was in early today with her syncopal episode during dialysis , though symptoms have not recurred but she tried to have a bowel movement at home and feels she's impacted. This has happened to her in the past. No nausea or vomiting. Onset: Unknown/Unsure Severity: Moderate Rectal Pain Score (Numeric/FACES): 8 - Related Data Allergies Allergy/AdvReac Type Severity Reaction Status Date / Time No Known Allergies Allergy Verified 08/08/17 14:20 Home Meds: Home Meds Insulin Glarg,Human.Rec.Analog [Lantus Solostar] 54 unit SQ BID 08/08/15 [ History] Lisinopril [Zestril] 10 mg PO DAILY 08/08/15 [History] Sertraline [Zoloft] 100 mg PO DAILY 08/08/15 [History] atorvaSTATin [Lipitor] 20 tab PO DAILY 08/08/15 [History] Cyanocobalamin (Vitamin B-12) [B-12] 1,000 mcg PO DAILY 12/29/15 [History] Gabapentin [Neurontin] 100 mg PO ASDIRECTED PRN 12/29/15 [History] Insulin Aspart [Novolog Flexpen] 10 unit SQ TID 12/29/15 [History] Aspirin 81 mg PO DAILY 06/29/16 [History] Epoetin Kevin [Epogen] 0.2 ml SUBCUT ASDIRECTED 06/29/16 [History] Calcium Acetate [PhosLo] 2,001 mg PO TID 12/15/16 [History] Ferrous Sulfate [Ferrous Sulfate] 325 mg PO BID 12/15/16 [History] Multivitamin [Multivitamins] 1 tab PO DAILY 12/15/16 [History] Nebivolol [Bystolic] 10 mg PO BID 12/15/16 [History] Isosorbide Mononitrate [Imdur] 1 tab PEGTUBE DAILY 12/31/16 [History] Past Medical History HEENT History: Reports: Impaired Vision, Macular Degeneration Cardiovascular History: Reports: CAD, High Cholesterol, Hypertension, Stents Respiratory History: Reports: Asthma Other Respiratory History: uses Cpap. Gastrointestinal History: Reports: Colon Polyp Genitourinary History: Reports: Acute Renal Failure, Dialysis Other Genitourinary History: dialysis Musculoskeletal History: Reports: Fracture, Other (See Below) Other Musculoskeletal History: r ankle fracture and lower leg Psychiatric History: Reports: Depression Endocrine/Metabolic History: Reports: Diabetes, Type II, Obesity/BMI 30+ Hematologic History: Reports: Blood Transfusion(s) Dermatologic History: Reports: Other (See Below) Other Dermatologic History: Open wound rlq abdome. Draining. Healed . - Infectious Disease History Infectious Disease History: Reports: Chicken Pox, Shingles - Past Surgical History HEENT Surgical History: Reports: Cataract Surgery Cardiovascular Surgical History: Reports: Coronary Artery Stent Musculoskeletal Surgical History: Reports: Other (See Below) Social & Family History - Family History Family Medical History: Noncontributory - Tobacco Use Smoking Status *Q: Never Smoker Years of Tobacco use: 3 Packs/Tins Daily: 0.2 Used Tobacco, but Quit: Yes Month Tobacco Last Used: March Second Hand Smoke Exposure: No - Caffeine Use Caffeine Use: Reports: Coffee - Recreational Drug Use Recreational Drug Use: No ED ROS GENERAL - Review of Systems Review Of Systems: See Below Constitutional: Denies: Fever, Chills, Malaise Respiratory: Denies: Shortness of Breath Cardiovascular: Denies: Chest Pain GI/Abdominal: Reports: Abdominal Pain (Especially perirectal) Neurological: Reports: Syncope (Evaluated for syncope earlier today) ED EXAM, GI/ABD - Physical Exam Exam: See Below Exam Limited By: No Limitations General Appearance: Alert, No Apparent Distress (Not in any distress but looks uncomfortable) Respiratory/Chest: No Respiratory Distress GI/Abdominal Exam: Soft, Other (Some discomfort to palpation across the lower abdomen but no guarding) Rectal (Female) Exam: Fecal Impaction (Fecal impaction is present on digital exam) Course - Vital Signs Last Recorded V/S: Last Vital Signs Temp 96.6 F 08/08/17 14:15 Pulse 59 L 08/08/17 14:15 Resp 22 H 08/08/17 14:15 BP 114/79 08/08/17 14:15 Pulse Ox 92 L 08/08/17 14:15 - Re-Assessments/Exams Free Text/Narrative Re-Assessment/Exam: 08/08/17 15:22 After digital exam with lubricating jelly, an enema was given and the patient had good results. She had a large BM with resolving symptoms. It was recommended she continue taking MiraLAX or some stool softener on a regular basis to keep her regular. Departure - Departure Time of Disposition: 15:41 Disposition: Home, Self-Care 01 Condition: Good Clinical Impression: Constipation Qualifiers: Constipation type: slow transit constipation Qualified Code(s): K59.01 - Slow transit constipation - Discharge Information Instructions: Constipation, Adult, [id number] Referrals: Med Omalley MD [Primary Care Provider] - Forms: ED Department Discharge Care Plan Goals: Drink plenty of water, also MiraLAX or other stool softener on a regular basis should help, and return if symptoms recur.
== END 2017-08-08 15:30 | disposition home or self-care (01) ==
LOC: JP.ED 14:10
DX: K59.01 Slow transit constipation (principal); I10 Essential (primary) hypertension; I25.10 Atherosclerotic heart disease of native coronary artery without angina pectoris; E78.00 Pure hypercholesterolemia, unspecified; J45.909 Unspecified asthma, uncomplicated; E11.9 Type 2 diabetes mellitus without complications; Z99.2 Dependence on renal dialysis; Z87.891 Personal history of nicotine dependence; Z79.4 Long term (current) use of insulin; Z79.82 Long term (current) use of aspirin; Z79.899 Other long term (current) drug therapy; R55 Syncope and collapse; F32.9 Major depressive disorder, single episode, unspecified; Z95.5 Presence of coronary angioplasty implant and graft
CPT/HCPCS: 99283; 99284

== ENCOUNTER 2017-10-24 10:42 | Emergency (ER) | payer MEDICARE, BC ==
[2017-10-24] MEDS ORDERED: Sodium Chloride 0.9% 1,000 ML IV SCH (11:45)
--- NOTE | 2017-10-24 12:17 | CR ---
Chest 1V Frontal INDICATION: sob FINDINGS: Comparison 12/27/2016. No change. Negative AP portable chest x-ray.
--- NOTE | 2017-10-24 12:34 | EDM.PDOC ---
ED HPI GENERAL MEDICAL PROBLEM - General Chief Complaint: Cardiovascular Problem Stated Complaint: MEDICAL VIA NORTH Time Seen by Provider: 10/24/17 11:00 Source of Information: Reports: Patient, Other (notes from the dialysis unit. ) History Limitations: Reports: No Limitations - History of Present Illness INITIAL COMMENTS - FREE TEXT/NARRATIVE: pt had greater than 4 liters taken off. She was being weighed and she got very lite headed her bp was low. She developed a headache and pain in her jaw. Onset: Today, Sudden Duration: Hour(s): Location: Reports: Neck, Other (pt had jaw pain and she felt very lite headed. ) Improves with: Reports: None Associated Symptoms: Reports: Nausea/Vomiting, Weakness, Other (pt was very lite headed. ) - Related Data Allergies Allergy/AdvReac Type Severity Reaction Status Date / Time No Known Allergies Allergy Verified 08/08/17 14:20 Home Meds: Home Meds Insulin Glarg,Human.Rec.Analog [Lantus Solostar] 54 unit SQ BID 08/08/15 [ History] Lisinopril [Zestril] 10 mg PO DAILY 08/08/15 [History] Sertraline [Zoloft] 100 mg PO DAILY 08/08/15 [History] atorvaSTATin [Lipitor] 20 tab PO BEDTIME 08/08/15 [History] Cyanocobalamin (Vitamin B-12) [B-12] 1,000 mcg PO DAILY 12/29/15 [History] Gabapentin [Neurontin] 100 mg PO ASDIRECTED PRN 12/29/15 [History] Insulin Aspart [Novolog Flexpen] 10 unit SQ BID 12/29/15 [History] Aspirin 81 mg PO DAILY 06/29/16 [History] Epoetin Kevin [Epogen] 0.2 ml SUBCUT ASDIRECTED 06/29/16 [History] Calcium Acetate [PhosLo] 2,001 mg PO TID 12/15/16 [History] Ferrous Sulfate [Ferrous Sulfate] 325 mg PO BID 12/15/16 [History] Nebivolol [Bystolic] 10 mg PO BID 12/15/16 [History] Isosorbide Mononitrate [Imdur] 1 tab PEGTUBE DAILY 12/31/16 [History] Past Medical History HEENT History: Reports: Impaired Vision, Macular Degeneration Cardiovascular History: Reports: CAD, High Cholesterol, Hypertension, Stents Respiratory History: Reports: Asthma Other Respiratory History: uses Cpap. Gastrointestinal History: Reports: Colon Polyp Genitourinary History: Reports: Acute Renal Failure, Dialysis Other Genitourinary History: dialysis Musculoskeletal History: Reports: Fracture, Other (See Below) Other Musculoskeletal History: r ankle fracture and lower leg Psychiatric History: Reports: Depression Endocrine/Metabolic History: Reports: Diabetes, Type II, Obesity/BMI 30+ Hematologic History: Reports: Blood Transfusion(s) Dermatologic History: Reports: Other (See Below) Other Dermatologic History: Open wound rlq abdome. Draining. Healed . - Infectious Disease History Infectious Disease History: Reports: Chicken Pox, Shingles - Past Surgical History HEENT Surgical History: Reports: Cataract Surgery Cardiovascular Surgical History: Reports: Coronary Artery Stent Musculoskeletal Surgical History: Reports: Amputation, Other (See Below) Social & Family History - Family History Family Medical History: Noncontributory - Tobacco Use Smoking Status *Q: Unknown Ever Smoked Years of Tobacco use: 3 Packs/Tins Daily: 0.2 Used Tobacco, but Quit: Yes Month Tobacco Last Used: March Second Hand Smoke Exposure: No - Caffeine Use Caffeine Use: Reports: Coffee - Recreational Drug Use Recreational Drug Use: No ED ROS GENERAL - Review of Systems Review Of Systems: See Below Constitutional: Reports: No Symptoms HEENT: Reports: No Symptoms Respiratory: Reports: No Symptoms Cardiovascular: Reports: Other (pt did have jaw pain. ) Endocrine: Reports: Fatigue GI/Abdominal: Reports: No Symptoms : Reports: No Symptoms Musculoskeletal: Reports: No Symptoms Skin: Reports: No Symptoms Neurological: Reports: Headache, Other (pt did have jaw pain but she did not have chest pain. ) ED EXAM, GENERAL - Physical Exam Exam: See Below Free Text/Narrative:: pt arrived with jaw pain and an episode where her pressure dropped signifantly. Exam Limited By: No Limitations General Appearance: Alert, Mild Distress, Other (bp is on the low side. Pupils are equal and reactive. ) Ears: Normal TMs Nose: Normal Inspection Throat/Mouth: Normal Inspection Head: Atraumatic Neck: Normal Inspection Respiratory/Chest: No Respiratory Distress GI/Abdominal: Soft, Non-Tender (Female) Exam: Deferred Rectal (Female) Exam: Deferred Back Exam: Normal Inspection Extremities: Other (pt has pluse 1 edema. ) Neurological: Alert, Oriented, Normal Cognition Psychiatric: Normal Affect Course - Vital Signs Last Recorded V/S: Last Vital Signs Temp 35.8 C 10/24/17 14:55 Pulse 59 L 10/24/17 14:28 Resp 15 10/24/17 14:28 BP 129/34 L 10/24/17 14:55 Pulse Ox 95 10/24/17 14:28 Orthostatic Blood Pressure [ 106/41 Standing] Orthostatic Blood Pressure [ 86/63 Sitting] - Orders/Labs/Meds Orders: Active Orders 24 hr Category Date Time Status EKG Documentation Completion [RC] ASDIRECTED Care 10/24/17 11:05 Active EKG 12 Lead [EK] Routine Ther 10/24/17 11:05 Ordered Labs: Laboratory Tests 10/24/17 10/24/17 10/24/17 Range/Units 11:13 11:13 13:48 WBC 7.4 (4.5-11.0) K/uL RBC 3.45 (3.30-5.50) M/uL Hgb 11.4 L (12.0-15.0) g/dL Hct 35.1 L (36.0-48.0) % MCV 102 H (80-98) fL MCH 33 H (27-31) pg MCHC 33 (32-36) % Plt Count 175 (150-400) K/uL Neut % (Auto) 72 H (36-66) % Lymph % (Auto) 17 L (24-44) % Woods % (Auto) 6 (2-6) % Eos % (Auto) 4 (2-4) % Baso % (Auto) 1 (0-1) % Sodium 134 L (140-148) mmol/L Potassium 4.4 (3.6-5.2) mmol/L Chloride 94 L (100-108) mmol/L Carbon Dioxide 30 (21-32) mmol/L Anion Gap 14.4 H (5.0-14.0) mmol/L BUN 25 H (7-18) mg/dL Creatinine 4.4 H* (0.6-1.0) mg/dL Est Cr Clr Drug Dosing 11.61 mL/min Estimated GFR (MDRD) 10 L (>60) Glucose 165 H (74-106) mg/dL Calcium 8.9 (8.5-10.1) mg/dL Total Bilirubin 0.4 (0.2-1.0) mg/dL AST 14 L (15-37) U/L ALT 24 (12-78) U/L Alkaline Phosphatase 61 (46-116) U/L Troponin I 0.058 H* 0.048 (0.000-0.056) ng/mL Total Protein 7.5 (6.4-8.2) g/dL Albumin 3.0 L (3.4-5.0) g/dL Globulin 4.5 H (2.3-3.5) g/dL Albumin/Globulin Ratio 0.7 L (1.2-2.2) Meds: Medications Discontinued Medications Generic Name Dose Route Start Last Admin Trade Name Freq PRN Reason Stop Dose Admin Sodium Chloride 1,000 mls @ 200 mls/hr 10/24/17 11:45 10/24/17 11:50 Normal Saline IV 200 mls/hr ASDIRECTED EDUARD Administration - Re-Assessments/Exams Free Text/Narrative Re-Assessment/Exam: 10/24/17 14:30 pt was given 500 cc of fluid. Her jaw pain was gone by the time she arrived. Her first trop was borderlin elevated at .058. 3# hours later another was repeated and was normal. Pt has a bp which is doing well since the fluid . At first it was dropping into the 88 systolic range. 10/25/17 07:44 Departure - Departure Time of Disposition: 14:35 Disposition: Home, Self-Care 01 Condition: Fair Clinical Impression: Hypotension, Jaw pain, Renal insufficiency Instructions: Hypotension, [id number] Referrals: Med Omalley MD [Primary Care Provider] - Forms: ED Department Discharge Care Plan Goals: rtc if pt has a reoccurence of the jaw pain, keep next dialysis appt, cont other meds. - My Orders Last 24 Hours: My Active Orders 10/24/17 11:05 EKG Documentation Completion [RC] ASDIRECTED EKG 12 Lead [EK] Routine - Assessment/Plan Last 24 Hours: My Active Orders 10/24/17 11:05 EKG Documentation Completion [RC] ASDIRECTED EKG 12 Lead [EK] Routine
[2017-10-24 15:05] VITALS: BP 129/34
== END 2017-10-24 15:08 | disposition home or self-care (01) ==
LOC: JP.ED 10:42
DX: I95.9 Hypotension, unspecified (principal); N28.9 Disorder of kidney and ureter, unspecified; R68.84 Jaw pain; E11.9 Type 2 diabetes mellitus without complications; E78.00 Pure hypercholesterolemia, unspecified; Z79.82 Long term (current) use of aspirin; Z79.899 Other long term (current) drug therapy; Z79.4 Long term (current) use of insulin; Z87.891 Personal history of nicotine dependence
CPT/HCPCS: 36415; 71045; 80053; 84484; 85025; 93005; 93010; 96360; 96361; 99285; J7040; 99283; J7030

== ENCOUNTER 2017-11-14 11:01 | Emergency (ER) | payer MEDICARE, BC ==
[2017-11-14 11:12] VITALS: BP 127/107
--- NOTE | 2017-11-14 11:21 | EDM.PDOC ---
ED HPI GENERAL MEDICAL PROBLEM - General Chief Complaint: Cardiovascular Problem Stated Complaint: CHEST PRESSURE;WEAKNESS VIA NORTH Time Seen by Provider: 11/14/17 11:02 Source of Information: Reports: Patient, EMS History Limitations: Reports: No Limitations - History of Present Illness INITIAL COMMENTS - FREE TEXT/NARRATIVE: 67-year-old female was getting her dialysis run when she developed some chest pressure. She did complete her run. This is a very common recurring symptom while she is getting dialysis because of the fluid removal. She was somewhat hypertensive compared to her baseline so she was sent over for evaluation. Symptoms are now resolved. She had some mild shortness of breath which is also typical. An EKG was done, appears to be identical to one done a month ago. When she was preparing to leave she became syncopal so they elected to send her over for evaluation. Onset: Unknown/Unsure Location: Reports: Chest Severity: Mild Associated Symptoms: Reports: Shortness of Breath. Denies: Fever/Chills, Nausea /Vomiting - Related Data Allergies Allergy/AdvReac Type Severity Reaction Status Date / Time No Known Allergies Allergy Verified 08/08/17 14:20 Home Meds: Home Meds Insulin Glarg,Human.Rec.Analog [Lantus Solostar] 54 unit SQ BID 08/08/15 [ History] Lisinopril [Zestril] 10 mg PO DAILY 08/08/15 [History] Sertraline [Zoloft] 100 mg PO DAILY 08/08/15 [History] atorvaSTATin [Lipitor] 20 tab PO BEDTIME 08/08/15 [History] Cyanocobalamin (Vitamin B-12) [B-12] 1,000 mcg PO DAILY 12/29/15 [History] Gabapentin [Neurontin] 100 mg PO ASDIRECTED PRN 12/29/15 [History] Insulin Aspart [Novolog Flexpen] 10 unit SQ BID 12/29/15 [History] Aspirin 81 mg PO DAILY 06/29/16 [History] Epoetin Kevin [Epogen] 0.2 ml SUBCUT ASDIRECTED 06/29/16 [History] Calcium Acetate [PhosLo] 2,001 mg PO TID 12/15/16 [History] Ferrous Sulfate [Ferrous Sulfate] 325 mg PO BID 12/15/16 [History] Nebivolol [Bystolic] 10 mg PO BID 12/15/16 [History] Isosorbide Mononitrate [Imdur] 1 tab PEGTUBE DAILY 12/31/16 [History] Past Medical History HEENT History: Reports: Impaired Vision, Macular Degeneration Cardiovascular History: Reports: CAD, High Cholesterol, Hypertension, Stents Respiratory History: Reports: Asthma Other Respiratory History: uses Cpap. Gastrointestinal History: Reports: Colon Polyp Genitourinary History: Reports: Acute Renal Failure, Dialysis Other Genitourinary History: dialysis Musculoskeletal History: Reports: Fracture, Other (See Below) Other Musculoskeletal History: r ankle fracture and lower leg Psychiatric History: Reports: Depression Endocrine/Metabolic History: Reports: Diabetes, Type II, Obesity/BMI 30+ Hematologic History: Reports: Blood Transfusion(s) Dermatologic History: Reports: Other (See Below) Other Dermatologic History: Open wound rlq abdome. Draining. Healed . - Infectious Disease History Infectious Disease History: Reports: Chicken Pox, Shingles - Past Surgical History HEENT Surgical History: Reports: Cataract Surgery Cardiovascular Surgical History: Reports: Coronary Artery Stent Musculoskeletal Surgical History: Reports: Amputation, Other (See Below) Social & Family History - Family History Family Medical History: Noncontributory - Tobacco Use Smoking Status *Q: Unknown Ever Smoked Years of Tobacco use: 3 Packs/Tins Daily: 0.2 Used Tobacco, but Quit: Yes Month Tobacco Last Used: March Second Hand Smoke Exposure: No - Caffeine Use Caffeine Use: Reports: Coffee - Recreational Drug Use Recreational Drug Use: No ED ROS GENERAL - Review of Systems Review Of Systems: See Below Constitutional: Denies: Fever, Chills HEENT: Reports: No Symptoms Respiratory: Reports: Shortness of Breath, Other (Mild chest pressure) Cardiovascular: Reports: Other (Hypertension) GI/Abdominal: Denies: Nausea, Vomiting ED EXAM, GENERAL - Physical Exam Exam: See Below Exam Limited By: No Limitations General Appearance: Alert, No Apparent Distress Respiratory/Chest: No Respiratory Distress, Lungs Clear Cardiovascular: Regular Rate, Rhythm. No: Extra Beats GI/Abdominal: Soft, Non-Tender Neurological: Alert, Oriented EKG INTERPRETATION Rhythm: NSR Rate (Beats/Min): 48 Comparison: No Change (From one month ago) EKG Interpretation Comments: Persistent Q waves in the inferior leads. Course - Vital Signs Last Recorded V/S: Last Vital Signs Temp 95.5 F 11/14/17 11:11 Pulse 47 L 11/14/17 11:11 Resp 15 11/14/17 11:11 BP 127/107 H 11/14/17 11:11 Pulse Ox 98 11/14/17 11:11 - Re-Assessments/Exams Free Text/Narrative Re-Assessment/Exam: 11/14/17 17:40 An EKG was done which is identical to her previous EKG last year. She was observed for 30 minutes and was perfectly stable without symptoms, she wanted to avoid further workup unless necessary. I informed her that I was here all day and if symptoms recur or she develops concerns she can return. Departure - Departure Time of Disposition: 11:39 Disposition: Home, Self-Care 01 Condition: Fair Clinical Impression: Chest pain, atypical Instructions: Shortness of Breath, [id number] Referrals: Ryan Angulo NP [Primary Care Provider] - Forms: ED Department Discharge Care Plan Goals: Return to ER if symptoms recur or you develop other concerns, otherwise continue regular medications and dialysis schedule.
== END 2017-11-14 11:40 | disposition home or self-care (01) ==
LOC: JP.ED 11:01
DX: R07.89 Other chest pain (principal); I10 Essential (primary) hypertension; E78.00 Pure hypercholesterolemia, unspecified; E11.9 Type 2 diabetes mellitus without complications; E66.9 Obesity, unspecified; Z79.899 Other long term (current) drug therapy; Z79.4 Long term (current) use of insulin
CPT/HCPCS: 99285-25

== ENCOUNTER 2017-12-28 13:49 | Emergency (ER) | payer MEDICARE, BC ==
[2017-12-28] MEDS ORDERED: Sodium Chloride 0.9% 1,000 ML IV SCH (16:15)
--- NOTE | 2017-12-28 16:18 | EDM.PDOC ---
ED HPI GENERAL MEDICAL PROBLEM - General Chief Complaint: Respiratory Problem Stated Complaint: CONSTIPATED, SHORT OF BREATH Time Seen by Provider: 12/28/17 16:00 Source of Information: Reports: Patient, Family, Old Records, RN History Limitations: Reports: No Limitations - Related Data Allergies Allergy/AdvReac Type Severity Reaction Status Date / Time No Known Allergies Allergy Verified 12/28/17 14:41 Home Meds: Home Meds Insulin Glarg,Human.Rec.Analog [Lantus Solostar] 54 unit SQ BID 08/08/15 [ History] Lisinopril [Zestril] 10 mg PO DAILY 08/08/15 [History] Sertraline [Zoloft] 100 mg PO DAILY 08/08/15 [History] atorvaSTATin [Lipitor] 20 tab PO BEDTIME 08/08/15 [History] Cyanocobalamin (Vitamin B-12) [B-12] 1,000 mcg PO DAILY 12/29/15 [History] Gabapentin [Neurontin] 100 mg PO ASDIRECTED PRN 12/29/15 [History] Insulin Aspart [Novolog Flexpen] 10 unit SQ BID 12/29/15 [History] Aspirin 81 mg PO DAILY 06/29/16 [History] Epoetin Kevin [Epogen] 0.2 ml SUBCUT ASDIRECTED 06/29/16 [History] Calcium Acetate [PhosLo] 2,001 mg PO TID 12/15/16 [History] Ferrous Sulfate 325 mg PO DAILY 12/15/16 [History] Nebivolol [Bystolic] 5 mg PO BID 12/15/16 [History] Isosorbide Mononitrate [Imdur] 1 tab PO DAILY 12/31/16 [History] Midodrine 5 mg PO ASDIRECTED 12/28/17 [History] Past Medical History HEENT History: Reports: Impaired Vision, Macular Degeneration Cardiovascular History: Reports: CAD, High Cholesterol, Hypertension, Stents Respiratory History: Reports: Asthma, Sleep Apnea Other Respiratory History: uses Cpap. Gastrointestinal History: Reports: Colon Polyp Genitourinary History: Reports: Acute Renal Failure, Dialysis Other Genitourinary History: dialysis Musculoskeletal History: Reports: Fracture, Other (See Below) Other Musculoskeletal History: r ankle fracture and lower leg Psychiatric History: Reports: Depression Endocrine/Metabolic History: Reports: Diabetes, Type II, Obesity/BMI 30+ Hematologic History: Reports: Blood Transfusion(s) Dermatologic History: Reports: Other (See Below) Other Dermatologic History: Open wound rlq abdome. Draining. Healed . - Infectious Disease History Infectious Disease History: Reports: Chicken Pox, Measles - Past Surgical History HEENT Surgical History: Reports: Cataract Surgery Cardiovascular Surgical History: Reports: Coronary Artery Stent Musculoskeletal Surgical History: Reports: Amputation, Other (See Below) Social & Family History - Family History Family Medical History: Noncontributory - Tobacco Use Smoking Status *Q: Former Smoker Years of Tobacco use: 3 Packs/Tins Daily: 0.2 Used Tobacco, but Quit: Yes Month/Year Tobacco Last Used: 45 years ago Second Hand Smoke Exposure: No - Caffeine Use Caffeine Use: Reports: Coffee - Recreational Drug Use Recreational Drug Use: No ED ROS GENERAL - Review of Systems Review Of Systems: See Below Constitutional: Reports: Chills (chronic). Denies: Fever HEENT: Reports: No Symptoms Respiratory: Reports: Shortness of Breath. Denies: Wheezing, Pleuritic Chest Pain, Cough, Sputum, Hemoptysis Cardiovascular: Reports: No Symptoms Endocrine: Reports: No Symptoms ED EXAM, GENERAL - Physical Exam Exam: See Below Exam Limited By: No Limitations General Appearance: Alert, WD/WN, No Apparent Distress, Obese Eye Exam: Bilateral Eye: Normal Inspection Ears: Normal External Exam, Normal Canal, Hearing Grossly Normal, Normal TMs Ear Exam: Bilateral Ear: Auricle Normal, Canal Normal, TM normal Nose: Normal Inspection, Normal Mucosa, No Blood Throat/Mouth: Normal Inspection, Normal Lips, Normal Oropharynx, Normal Voice, No Airway Compromise Head: Atraumatic, Normocephalic Neck: Normal Inspection, Supple, Non-Tender Respiratory/Chest: No Respiratory Distress, Lungs Clear, Decreased Breath Sounds Cardiovascular: Regular Rate, Rhythm, No Edema GI/Abdominal: Normal Bowel Sounds, Soft, Non-Tender, No Distention Extremities: Normal Inspection, Normal Range of Motion, Non-Tender, No Pedal Edema Neurological: Alert, Oriented, CN II-XII Intact, Normal Cognition, No Motor/ Sensory Deficits Psychiatric: Normal Affect, Normal Mood Skin Exam: Warm, Dry, Intact, Normal Color, No Rash Lymphatic: No Adenopathy EKG INTERPRETATION EKG Date: 12/28/17 Time: 16:25 Rhythm: NSR Rate (Beats/Min): 66 [place]: Normal P-Wave: Present QRS: LBBB (new LBBB) ST-T: Depressed (V4-V6) QT: Normal Comparison: Change From Previous EKG (ischemic changes noted in lateral leads, new from 11/14/17) Course - Vital Signs Text/Narrative:: Dr. Quigley accepted @ [facility] at 1712h Last Recorded V/S: Last Vital Signs Temp 37.4 C 12/28/17 14:34 Pulse 69 12/28/17 17:07 Resp 18 12/28/17 16:56 BP 146/38 H 12/28/17 17:07 Pulse Ox 98 12/28/17 16:56 - Orders/Labs/Meds Orders: Active Orders 24 hr Category Date Time Status EKG Documentation Completion [RC] ASDIRECTED Care 12/28/17 16:19 Active Oxygen Therapy Adult [Oxygen Therapy, ED] [RC] Care 12/28/17 15:27 Active ASDIRECTED Ang Chest [CT] Stat Exams 12/28/17 16:14 Taken Chest 1V Frontal [CR] Stat Exams 12/28/17 15:28 Taken Iopamidol [Isovue-370 (76%)] Med 12/28/17 16:30 Active 100 ml IV . DIRECTED Nitroglycerin 25 MG in D5W @ 10 MCG/MIN(250ml) Premix Med 12/28/17 17:15 Ordered Nitroglycerin/D5W [Nitroglycerin 25 MG/D5W 250 ML] 25 mg in 250 ml IV TITRATE Sodium Chloride 0.9% [Normal Saline] 1,000 ml Med 12/28/17 16:15 Active IV ASDIRECTED Sodium Chloride 0.9% [Normal Saline] 100 ml Med 12/28/17 16:30 Active IV ASDIRECTED Sodium Chloride 0.9% [Saline Flush] Med 12/28/17 16:22 Active 10 ml FLUSH ASDIRECTED PRN EKG 12 Lead [EK] Routine Ther 12/28/17 16:18 Ordered Medication Orders Sodium Chloride (Normal Saline) 1,000 mls @ 150 mls/hr IV ASDIRECTED EDUARD Last Admin: 12/28/17 16:52 Dose: 150 mls/hr Sodium Chloride (Normal Saline) 100 mls @ 5 mls/sec IV ASDIRECTED EDUARD Last Admin: 12/28/17 16:43 Dose: 5 mls/sec Iopamidol (Isovue-370 (76%)) 100 ml IV . DIRECTED EDUARD Last Admin: 12/28/17 16:43 Dose: 100 ml Sodium Chloride (Saline Flush) 10 ml FLUSH ASDIRECTED PRN PRN Reason: Keep Vein Open Last Admin: 12/28/17 16:43 Dose: 10 ml Labs: Laboratory Tests 12/28/17 12/28/17 12/28/17 Range/Units 15:27 15:27 15:27 WBC 11.2 H (4.5-11.0) K/uL RBC 3.15 L (3.30-5.50) M/uL Hgb 10.5 L (12.0-15.0) g/dL Hct 32.6 L (36.0-48.0) % MCV 104 H (80-98) fL MCH 33 H (27-31) pg MCHC 32 (32-36) % Plt Count 220 (150-400) K/uL D-Dimer, Quantitative 1450 H (0.0-400.0) ng/mL Sodium 134 L (140-148) mmol/L Potassium 4.2 (3.6-5.2) mmol/L Chloride 95 L (100-108) mmol/L Carbon Dioxide 30 (21-32) mmol/L Anion Gap 13.2 (5.0-14.0) mmol/L BUN 21 H (7-18) mg/dL Creatinine 4.3 H* (0.6-1.0) mg/dL Est Cr Clr Drug Dosing 11.42 mL/min Estimated GFR (MDRD) 10 L (>60) Glucose 181 H (74-106) mg/dL Calcium 9.8 (8.5-10.1) mg/dL Troponin I 6.868 H* (0.000-0.056) ng/mL NT-Pro-B Natriuret Pep (5-125) pg/mL 12/28/17 Range/Units 15:27 WBC (4.5-11.0) K/uL RBC (3.30-5.50) M/uL Hgb (12.0-15.0) g/dL Hct (36.0-48.0) % MCV (80-98) fL MCH (27-31) pg MCHC (32-36) % Plt Count (150-400) K/uL D-Dimer, Quantitative (0.0-400.0) ng/mL Sodium (140-148) mmol/L Potassium (3.6-5.2) mmol/L Chloride (100-108) mmol/L Carbon Dioxide (21-32) mmol/L Anion Gap (5.0-14.0) mmol/L BUN (7-18) mg/dL Creatinine (0.6-1.0) mg/dL Est Cr Clr Drug Dosing mL/min Estimated GFR (MDRD) (>60) Glucose (74-106) mg/dL Calcium (8.5-10.1) mg/dL Troponin I (0.000-0.056) ng/mL NT-Pro-B Natriuret Pep 46973 H (5-125) pg/mL Meds: Medications Generic Name Dose Route Start Last Admin Trade Name Patricioq PRN Reason Stop Dose Admin Sodium Chloride 1,000 mls @ 150 mls/hr 12/28/17 16:15 12/28/17 16:52 Normal Saline IV 150 mls/hr ASDIRECTED EDUARD Administration Sodium Chloride 100 mls @ 5 mls/sec 12/28/17 16:30 12/28/17 16:43 Normal Saline IV 5 mls/sec ASDIRECTED EDUARD Administration Iopamidol 100 ml 12/28/17 16:30 12/28/17 16:43 Isovue-370 (76%) IV 100 ml . DIRECTED EDUARD Administration Sodium Chloride 10 ml 12/28/17 16:22 12/28/17 16:43 Saline Flush FLUSH 10 ml ASDIRECTED PRN Administration Keep Vein Open Discontinued Medications Generic Name Dose Route Start Last Admin Trade Name Patricioq PRN Reason Stop Dose Admin Aspirin 324 mg 12/28/17 16:33 12/28/17 16:50 Aspirin PO 12/28/17 16:34 324 mg ONETIME ONE Administration Clopidogrel Bisulfate 600 mg 12/28/17 16:58 12/28/17 17:07 Plavix PO 12/28/17 16:59 600 mg ONETIME ONE Administration Heparin Sodium (Porcine) 5,000 units 12/28/17 16:59 12/28/17 17:07 Heparin Sodium IVPUSH 12/28/17 17:00 5,000 units ONETIME ONE Administration Metoprolol Tartrate 25 mg 12/28/17 16:59 12/28/17 17:07 Lopressor PO 12/28/17 17:00 25 mg ONETIME ONE Administration - Radiology Interpretation Free Text/Narrative:: CXR-minimal change CTA chest-No PE seen. CT Results Date: 12/28/17 Departure - Departure Time of Disposition: 17:35 Disposition: DC/Tfer to Acute Hospital 02 Condition: Serious Clinical Impression: Cardiac ischemia, Elevated troponin, Dialysis patient CRF (chronic renal failure) Qualifiers: Chronic kidney disease stage: stage 5 Qualified Code(s): N18.5 - Chronic kidney disease, stage 5 - Discharge Information Referrals: Ryan Angulo BROADCAST OPERATIONS ENGINEER [Primary Care Provider] - Forms: ED Department Discharge - My Orders Last 24 Hours: My Active Orders 12/28/17 15:27 Oxygen Therapy Adult [Oxygen Therapy, ED] [RC] ASDIRECTED 12/28/17 15:28 Chest 1V Frontal [CR] Stat 12/28/17 16:14 Ang Chest [CT] Stat 12/28/17 16:15 Sodium Chloride 0.9% [Normal Saline] 1,000 ml IV ASDIRECTED 12/28/17 16:18 EKG 12 Lead [EK] Routine 12/28/17 16:19 EKG Documentation Completion [RC] ASDIRECTED 12/28/17 16:22 Sodium Chloride 0.9% [Saline Flush] 10 ml FLUSH ASDIRECTED PRN 12/28/17 16:30 Iopamidol [Isovue-370 (76%)] 100 ml IV . DIRECTED Sodium Chloride 0.9% [Normal Saline] 100 ml IV ASDIRECTED 12/28/17 17:15 Nitroglycerin 25 MG in D5W @ 10 MCG/MIN(250ml) Premix Nitroglycerin/D5W [ Nitroglycerin 25 MG/D5W 250 ML] 25 mg in 250 ml IV TITRATE - Assessment/Plan Last 24 Hours: My Active Orders 12/28/17 15:27 Oxygen Therapy Adult [Oxygen Therapy, ED] [RC] ASDIRECTED 12/28/17 15:28 Chest 1V Frontal [CR] Stat 12/28/17 16:14 Ang Chest [CT] Stat 12/28/17 16:15 Sodium Chloride 0.9% [Normal Saline] 1,000 ml IV ASDIRECTED 12/28/17 16:18 EKG 12 Lead [EK] Routine 12/28/17 16:19 EKG Documentation Completion [RC] ASDIRECTED 12/28/17 16:22 Sodium Chloride 0.9% [Saline Flush] 10 ml FLUSH ASDIRECTED PRN 12/28/17 16:30 Iopamidol [Isovue-370 (76%)] 100 ml IV . DIRECTED Sodium Chloride 0.9% [Normal Saline] 100 ml IV ASDIRECTED 12/28/17 17:15 Nitroglycerin 25 MG in D5W @ 10 MCG/MIN(250ml) Premix Nitroglycerin/D5W [ Nitroglycerin 25 MG/D5W 250 ML] 25 mg in 250 ml IV TITRATE
[2017-12-28] MEDS ORDERED: Sodium Chloride 0.9% 10 ML Syringe FLUSH PRN (16:22)
[2017-12-28] MEDS ORDERED: Sodium Chloride 0.9% 100 ML IV SCH (16:30)
[2017-12-28] MEDS ORDERED: Iopamidol 755 Mg/ML 100 ML Bottle IV SCH ×2 (16:30→16:45)
[2017-12-28] MEDS ORDERED: Sodium Chloride 0.9% 100 ML IV ONE (16:31)
[2017-12-28] MEDS ORDERED: Aspirin 81 MG Tab.Chew PO ONE (16:33)
[2017-12-28] MEDS ORDERED: Sodium Chloride 0.9% 10 ML Syringe FLUSH ONE (16:33)
[2017-12-28] MEDS ORDERED: Clopidogrel 75 MG Tab PO ONE (16:58)
[2017-12-28] MEDS ORDERED: Metoprolol Tartrate 25 MG Tab PO ONE (16:59)
[2017-12-28] MEDS ORDERED: Heparin Sodium 5,000 Units/ML Vial IVPUSH ONE (16:59)
[2017-12-28] MEDS ORDERED: Nitroglycerin/D5W 25 MG/250 ML BOTTLE IV SCH (17:15)
[2017-12-28 17:32] VITALS: BP 152/43
--- NOTE | 2017-12-29 11:23 | CR ---
Rotated view. Cardiomegaly. No focal consolidation. No pneumothorax. The density about the mediastinu m and central heart may relate to soft tissues but refer to CT report.
== END 2017-12-28 18:58 ==
LOC: JP.ED 13:49
DX: I12.0 Hypertensive chronic kidney disease with stage 5 chronic kidney disease or end stage renal disease (principal); E11.22 Type 2 diabetes mellitus with diabetic chronic kidney disease; N18.5 Chronic kidney disease, stage 5; I25.9 Chronic ischemic heart disease, unspecified; R79.89 Other specified abnormal findings of blood chemistry; E66.9 Obesity, unspecified; Z99.2 Dependence on renal dialysis; Z87.891 Personal history of nicotine dependence; Z79.4 Long term (current) use of insulin; Z79.899 Other long term (current) drug therapy; Z79.82 Long term (current) use of aspirin
CPT/HCPCS: 36415; 71045; 71275; 80048; 83880; 84484; 85027; 85379; 93005; 93010; 96361; 96365; 96375; 99285; A9270; J1644; J7030; J7040; J7050; Q9967

== ENCOUNTER 2018-04-17 10:48 | Emergency (ER) | payer MEDICARE, BC ==
[2018-04-17] MEDS ORDERED: Sodium Chloride 0.9% 500 ML IV ONE (11:29)
--- NOTE | 2018-04-17 11:41 | EDM.PDOC ---
ED HPI GENERAL MEDICAL PROBLEM - General Chief Complaint: Syncope Stated Complaint: WEAK FROM [place] Time Seen by Provider: 04/17/18 11:25 Source of Information: Reports: Patient, EMS, Old Records, RN History Limitations: Reports: No Limitations - History of Present Illness INITIAL COMMENTS - FREE TEXT/NARRATIVE: 67 yo female had dialysis today. [place] a little light-headed when she was weighed after dialysis, but didn't say anything because this happens often and it usually goes away after several minutes. Today on the way to the car she passed out briefly. EMS who transported found her to be hypotensive. Now here in the ER her BP is already rising and she feels back to normal. She has not had any recent fever, diarrhea, vomiting, or bleeding. She has past out after dialysis in the past, but not lately. She is diabetic and has not checked her BS yet today. Onset: Today Onset Date: 04/17/18 Duration: Minutes: (5-7 estimated), Improving Location: Reports: Generalized Quality: Reports: Other (no pain) Severity: Moderate Improves with: Reports: Other (time/lying down) Worsens with: Reports: Other (standing) Context: Reports: Other (dialysis today.) Associated Symptoms: Reports: Syncope Treatments FIRST BEATER: Reports: Other (see below) (none) - Related Data Allergies Allergy/AdvReac Type Severity Reaction Status Date / Time vancomycin Allergy Hives Verified 04/17/18 11:24 Home Meds: Home Meds Insulin Glarg,Human.Rec.Analog [Lantus Solostar] 54 unit SQ BID 08/08/15 [ History] Sertraline [Zoloft] 100 mg PO DAILY 08/08/15 [History] atorvaSTATin [Lipitor] 20 tab PO BEDTIME 08/08/15 [History] Cyanocobalamin (Vitamin B-12) [B-12] 1,000 mcg PO DAILY 12/29/15 [History] Gabapentin [Neurontin] 100 mg PO BID PRN 12/29/15 [History] Insulin Aspart [Novolog Flexpen] 10 unit SQ BID 12/29/15 [History] Aspirin 81 mg PO DAILY 06/29/16 [History] Epoetin Kevin [Epogen] 0.2 ml SUBCUT ASDIRECTED 06/29/16 [History] Calcium Acetate [PhosLo] 2,001 mg PO TID 12/15/16 [History] Midodrine 5 mg PO ASDIRECTED 12/28/17 [History] Cinacalcet [Sensipar] 30 mg PO DAILY 04/17/18 [History] Clopidogrel [Plavix] 75 mg PO DAILY 04/17/18 [History] Folic Acid 1 mg PO DAILY 04/17/18 [History] Metoprolol Succinate [Toprol XL] 25 mg PO DAILY 04/17/18 [History] Past Medical History HEENT History: Reports: Impaired Vision, Macular Degeneration Cardiovascular History: Reports: CAD, High Cholesterol, Hypertension, Stents Respiratory History: Reports: Asthma, Sleep Apnea Other Respiratory History: uses Cpap. Gastrointestinal History: Reports: Colon Polyp Genitourinary History: Reports: Acute Renal Failure, Dialysis Other Genitourinary History: dialysis Musculoskeletal History: Reports: Fracture, Other (See Below) Other Musculoskeletal History: r ankle fracture and lower leg Psychiatric History: Reports: Depression Endocrine/Metabolic History: Reports: Diabetes, Type II, Obesity/BMI 30+ Hematologic History: Reports: Blood Transfusion(s) Dermatologic History: Reports: Cellulitis, Other (See Below) Other Dermatologic History: Open wound rlq abdome. Draining. Healed . - Infectious Disease History Infectious Disease History: Reports: MRSA - Past Surgical History HEENT Surgical History: Reports: Cataract Surgery Cardiovascular Surgical History: Reports: Coronary Artery Stent Female Surgical History: Reports: Hysterectomy Musculoskeletal Surgical History: Reports: Amputation, Other (See Below) Other Musculoskeletal Surgeries/Procedures:: scheduled for right leg BKA Social & Family History - Family History Family Medical History: Noncontributory - Tobacco Use Smoking Status *Q: Never Smoker - Caffeine Use Caffeine Use: Reports: Coffee - Recreational Drug Use Recreational Drug Use: No ED ROS GENERAL - Review of Systems Review Of Systems: See Below Constitutional: Reports: Weakness (now resolved.) HEENT: Reports: No Symptoms Respiratory: Reports: Shortness of Breath (chronic, not worse today.) Cardiovascular: Reports: Lightheadedness Endocrine: Reports: No Symptoms GI/Abdominal: Reports: No Symptoms : Reports: No Symptoms Musculoskeletal: Reports: No Symptoms Skin: Reports: No Symptoms Neurological: Reports: No Symptoms - Physical Exam Exam: See Below Exam Limited By: No Limitations General Appearance: Alert, WD/WN, No Apparent Distress, Obese Eye Exam: Bilateral Eye: Normal Inspection Ears: Normal External Exam, Normal Canal, Hearing Grossly Normal, Normal TMs Nose: Normal Inspection, Normal Mucosa, No Blood Throat/Mouth: Normal Inspection, Normal Lips, Normal Oropharynx, Normal Voice, No Airway Compromise Head Exam: Atraumatic, Normocephalic Neck: Normal Inspection, Supple, Non-Tender Respiratory/Chest: No Respiratory Distress, Lungs Clear, Normal Breath Sounds, No Accessory Muscle Use Cardiovascular: Regular Rate, Rhythm GI/Abdominal: Soft, Non-Tender, No Distention Neuro Exam (Abbreviated): Alert, Oriented, CN II-XII Intact, Normal Cognition, No Motor/Sensory Deficits Back Exam: Normal Inspection. No: CVA Tenderness (R), CVA Tenderness (L) Extremities: Pedal Edema (L partial foot amputation.) Psychiatric: Normal Affect, Normal Mood Skin Exam: Warm, Dry, Intact, Normal Color, No Rash Course - Vital Signs Text/Narrative:: fingerstick 168 Drank a glass of water here and after felt better, BP's up. Sat at edge of bed with feet dangling and had no recurrence of either light-headedness or low BP. Last Recorded V/S: Last Vital Signs Temp 34.9 C L 04/17/18 10:58 Pulse 60 04/17/18 11:40 Resp 12 04/17/18 11:40 BP 102/35 L 04/17/18 11:40 Pulse Ox 96 04/17/18 11:40 - Orders/Labs/Meds Meds: Medications Discontinued Medications Generic Name Dose Route Start Last Admin Trade Name Freq PRN Reason Stop Dose Admin Sodium Chloride 500 mls @ 1,000 mls/hr 04/17/18 11:29 Normal Saline IV 04/17/18 11:58 .BOLUS ONE Departure - Departure Time of Disposition: 12:04 Disposition: Home, Self-Care 01 Condition: Good Clinical Impression: Hypotension of hemodialysis - Discharge Information Referrals: Ryan Angulo NP [Primary Care Provider] - Forms: ED Department Discharge
[2018-04-17 12:20] VITALS: BP 128/43
== END 2018-04-17 12:22 | disposition home or self-care (01) ==
LOC: JP.ED 10:48
DX: I95.3 Hypotension of hemodialysis (principal)
CPT/HCPCS: 99284

== ENCOUNTER 2019-07-05 07:28 | Day surgery (SDC) | payer MEDICARE, BC ==
[2019-07-05] MEDS ORDERED: Sodium Chloride 0.9% 1,000 ML IV SCH (08:15)
[2019-07-05] MEDS ORDERED: Midazolam 1 MG/ML 2 ML SDV ONE (09:45)
[2019-07-05] MEDS ORDERED: Propofol 200 MG/20 ML SDV ONE ×2 (09:45→10:28)
[2019-07-05] MEDS ORDERED: fentaNYL 100 MCG/2 ML SDV ONE (09:45)
[2019-07-05 10:48] VITALS: PULSE 73
--- NOTE | 2019-07-05 10:50 | OR ---
DATE OF PROCEDURE: 07/05/2019 SURGEON: Timothy Shukla MD PROCEDURE: Colonoscopy. FINDINGS: 1. No evidence of old or new blood. 2. Diverticulosis, throughout entire colon. 3. Cobblestoning type appearance of the descending/sigmoid colon. COMPLICATIONS: None. FIELD ARTILLERY SENIOR SERGEANT: None. PREOPERATIVE DIAGNOSIS: Blood in stool. POSTOPERATIVE DIAGNOSIS: Blood in stool. RISKS: Risks, benefits, alternatives, and limitations including, but not limited to, infection, bleeding, and perforation were explained to the patient who wished to proceed. PROCEDURE IN DETAIL: Patient was placed in left lateral decubitus position. Digital rectal exam was performed, which showed retained stool. The scope was introduced and advanced atraumatically into the ileocecal valve. There was solid and liquid stool remaining. Suction irrigation techniques were used to maximize visualization of the colon. The scope was brought back to the ascending, transverse, descending colon, and retroflexed. Within the sigmoid colon itself, there was some cobblestoning type appearance. This area was biopsied multiple times using cold biopsy forceps. The diverticulosis was described as mild, however, extending throughout the entire colon. There was no polyps. No old or new blood. No abnormalities on retroflex except for a small skin tag. The etiology of the patient's bleeding is most likely due to diverticulosis. However, there was no active bleeding at this time. Timothy Shukla MD /[id number]
[2019-07-05 11:05] VITALS: BP 108/58
== END 2019-07-05 11:15 | disposition home or self-care (01) ==
LOC: JP.SDS 07:28
PROVIDERS: ATTEND Surgery
DX: K57.31 Diverticulosis of large intestine without perforation or abscess with bleeding (principal); K63.5 Polyp of colon; K64.4 Residual hemorrhoidal skin tags; I25.10 Atherosclerotic heart disease of native coronary artery without angina pectoris; I10 Essential (primary) hypertension; I42.9 Cardiomyopathy, unspecified; E11.9 Type 2 diabetes mellitus without complications; J44.9 Chronic obstructive pulmonary disease, unspecified; Z88.1 Allergy status to other antibiotic agents; Z99.89 Dependence on other enabling machines and devices
CPT/HCPCS: 45380; J2250; J2704; J3010; J7030

== ENCOUNTER 2020-05-04 00:09 | Emergency (ER) | payer MEDICARE, BC ==
--- NOTE | 2020-05-04 00:32 | EDM.PDOC ---
ED HPI GENERAL MEDICAL PROBLEM - General Chief Complaint: Respiratory Problem Stated Complaint: MEDICAL VIA NORTH Time Seen by Provider: 05/04/20 00:21 Source of Information: Reports: Patient History Limitations: Reports: No Limitations - History of Present Illness INITIAL COMMENTS - FREE TEXT/NARRATIVE: Patient presents by ambulance from home after feeling short of breath this evening. She has home oxygen available to her and when paramedics arrived she was using her CPAP machine but not oxygen itself. Her saturations were low and she was placed on nasal oxygen. She denied fever or chills. No chest pain or any other pain. She is a dialysis patient and did her usual run on Tuesday, which she tolerated well. On room air, sats were in the mid-70s but with 2 liters of nasal oxygen, saturations increased into the low 90% range. At this time, she is feeling better. She reports that she just saw a pulmonary medicine physician for the first time on , May 01. She does not remember his name but he was in [place]. This doctor was the one who started her on the home oxygen concentrator but also sent her with a medication nebulizer. She does not know if she has asthma or COPD. She has not used the nebulizer since bringing at home , almost 2 days ago. Onset: Today Duration: Hour(s): - Related Data Allergies Allergy/AdvReac Type Severity Reaction Status Date / Time vancomycin Allergy Hives Verified 05/04/20 00:19 Home Meds: Home Meds Insulin Glarg,Human.Rec.Analog [Lantus Solostar] 60 unit SQ BID 08/08/15 [History] Sertraline [Zoloft] 100 mg PO DAILY 08/08/15 [History] atorvaSTATin [Lipitor] 20 tab PO BEDTIME 08/08/15 [History] Cyanocobalamin (Vitamin B-12) [B-12] 1,000 mcg PO DAILY 12/29/15 [History] Gabapentin [Neurontin] 100 mg PO BID 12/29/15 [History] Insulin Aspart [Novolog Flexpen] 12 unit SQ TID 12/29/15 [History] Aspirin 81 mg PO DAILY 06/29/16 [History] Epoetin Kevin [Epogen] 0.2 ml SUBCUT ASDIRECTED 06/29/16 [History] Calcium Acetate [PhosLo] 3 cap PO TID 12/15/16 [History] Clopidogrel [Plavix] 75 mg PO DAILY 04/17/18 [History] Folic Acid 1 mg PO DAILY 04/17/18 [History] Metoprolol Succinate [Toprol XL] 25 mg PO DAILY 04/17/18 [History] Nitroglycerin [Nitrostat] 0.4 mg SL Q5M PRN 08/28/18 [History] Acetaminophen [Tylenol] 650 mg PO QID 07/03/19 [History] Cetirizine HCl [Zyrtec] 10 mg PO DAILY 07/03/19 [History] Ferric Citrate [Auryxia] 2 tab PO TID 07/03/19 [History] Past Medical History HEENT History: Reports: Cataract, Impaired Vision, Macular Degeneration Cardiovascular History: Reports: CAD, High Cholesterol, Hypertension, [place], Stents Respiratory History: Reports: Asthma, COPD, Sleep Apnea Other Respiratory History: uses Cpap. Gastrointestinal History: Reports: Colon Polyp Genitourinary History: Reports: Acute Renal Failure, Dialysis Other Genitourinary History: dialysis Musculoskeletal History: Reports: Amputation, Fracture, Other (See Below) Other Musculoskeletal History: r ankle fracture and lower leg Neurological History: Reports: Neuropathy, Diabetic Psychiatric History: Reports: Anxiety, Depression Endocrine/Metabolic History: Reports: Diabetes, Type II, Obesity/BMI 30+ Hematologic History: Reports: B12 Deficiency, Blood Transfusion(s) Dermatologic History: Reports: Cellulitis, Other (See Below) Other Dermatologic History: Open wound rlq abdome. Draining. Healed . - Infectious Disease History Infectious Disease History: Reports: Chicken Pox, Measles, MRSA, Shingles - Past Surgical History HEENT Surgical History: Reports: Cataract Surgery, Laser Surgery Cardiovascular Surgical History: Reports: Coronary Artery Stent Respiratory Surgical History: Reports: None GI Surgical History: Reports: Colonoscopy Female Surgical History: Reports: Hysterectomy Endocrine Surgical History: Reports: None Neurological Surgical History: Reports: None Musculoskeletal Surgical History: Reports: Amputation Dermatological Surgical History: Reports: None Social & Family History - Family History Family Medical History: Noncontributory - Tobacco Use Smoking Status *Q: Never Smoker - Caffeine Use Caffeine Use: Reports: Coffee ED ROS GENERAL - Review of Systems Review Of Systems: See Below Constitutional: Reports: Weakness (Usual after dialysis.). Denies: Fever, Chills HEENT: Reports: No Symptoms Respiratory: Reports: Shortness of Breath, Wheezing, Cough, Sputum. Denies: Pleuritic Chest Pain Cardiovascular: Reports: No Symptoms Endocrine: Reports: No Symptoms GI/Abdominal: Reports: No Symptoms Musculoskeletal: Reports: Back Pain ED EXAM, GENERAL - Physical Exam Exam: See Below Free Text/Narrative:: This is an adult female on the cart in room 4. She has nasal oxygen on but is able to speak in sentences. She is somewhat impatient. Exam Limited By: No Limitations General Appearance: Alert Throat/Mouth: Normal Inspection Respiratory/Chest: Decreased Breath Sounds, Wheezing. No: Respiratory Distress Cardiovascular: Regular Rate, Rhythm Neurological: Alert, Oriented EKG INTERPRETATION EKG Date: 05/04/20 Rhythm: NSR [place]: LAD-Left [place] Deviation P-Wave: Present QRS: Wide ST-T: Normal QT: Normal Course - Vital Signs Last Recorded V/S: Last Vital Signs Temp 37.0 C 05/04/20 00:23 Pulse 71 05/04/20 02:30 Resp 18 05/04/20 02:30 BP 117/36 L 05/04/20 02:30 Pulse Ox 96 05/04/20 02:30 - Orders/Labs/Meds Orders: Active Orders 24 hr Category Date Time Status EKG Documentation Completion [RC] ASDIRECTED Care 05/04/20 00:24 Active RT Aerosol Therapy [RC] ASDIRECTED Care 05/04/20 00:47 Active Chest 1V Frontal [CR] Stat Exams 05/04/20 00:32 Taken CORONAVIRUS COVID-19, [facility] Stat Lab 05/04/20 00:22 Ordered EKG 12 Lead [EK] Routine Ther 05/04/20 00:22 Ordered Labs: Laboratory Tests 05/04/20 05/04/20 05/04/20 Range/Units 00:30 00:30 00:30 WBC 7.8 (4.5-11.0) K/uL RBC 4.18 (3.30-5.50) M/uL Hgb 13.4 D (12.0-15.0) g/dL Hct 42.1 (36.0-48.0) % MCV 101 H (80-98) fL MCH 32 H (27-31) pg MCHC 32 (32-36) % Plt Count (150-400) K/uL Neut % (Auto) 72 H (36-66) % Lymph % (Auto) 17 L (24-44) % [place] % (Auto) 7 H (2-6) % Eos % (Auto) 3 (2-4) % Baso % (Auto) 1 (0-1) % PT (9.5-12.0) sec INR (0.80-1.20) D-Dimer, Quantitative 365 (0.0-400.0) ng/mL Sodium 133 L (140-148) mmol/L Potassium 4.9 (3.6-5.2) mmol/L Chloride 92 L (100-108) mmol/L Carbon Dioxide 31 (21-32) mmol/L Anion Gap 14.9 H (5.0-14.0) mmol/L BUN 20 H (7-18) mg/dL Creatinine 3.0 H (0.6-1.0) mg/dL Est Cr Clr Drug Dosing 16.57 mL/min Estimated GFR (MDRD) 15 L (>60) Glucose 129 H (74-106) mg/dL Calcium 8.3 L D (8.5-10.1) mg/dL Total Bilirubin 0.4 (0.2-1.0) mg/dL AST 17 (15-37) U/L ALT 17 (12-78) U/L Alkaline Phosphatase 105 (46-116) U/L Creatine Kinase 52 (26-192) U/L Troponin I 0.116 H* (0.000-0.056) ng/mL Total Protein 7.8 (6.4-8.2) g/dL Albumin 2.8 L (3.4-5.0) g/dL Globulin 5.0 H (2.3-3.5) g/dL Albumin/Globulin Ratio 0.6 L (1.2-2.2) 05/04/20 Range/Units 01:15 WBC (4.5-11.0) K/uL RBC (3.30-5.50) M/uL Hgb (12.0-15.0) g/dL Hct (36.0-48.0) % MCV (80-98) fL MCH (27-31) pg MCHC (32-36) % Plt Count (150-400) K/uL Neut % (Auto) (36-66) % Lymph % (Auto) (24-44) % [place] % (Auto) (2-6) % Eos % (Auto) (2-4) % Baso % (Auto) (0-1) % PT 13.8 H (9.5-12.0) sec INR 1.27 H (0.80-1.20) D-Dimer, Quantitative (0.0-400.0) ng/mL Sodium (140-148) mmol/L Potassium (3.6-5.2) mmol/L Chloride (100-108) mmol/L Carbon Dioxide (21-32) mmol/L Anion Gap (5.0-14.0) mmol/L BUN (7-18) mg/dL Creatinine (0.6-1.0) mg/dL Est Cr Clr Drug Dosing mL/min Estimated GFR (MDRD) (>60) Glucose (74-106) mg/dL Calcium (8.5-10.1) mg/dL Total Bilirubin (0.2-1.0) mg/dL AST (15-37) U/L ALT (12-78) U/L Alkaline Phosphatase (46-116) U/L Creatine Kinase (26-192) U/L Troponin I (0.000-0.056) ng/mL Total Protein (6.4-8.2) g/dL Albumin (3.4-5.0) g/dL Globulin (2.3-3.5) g/dL Albumin/Globulin Ratio (1.2-2.2) Meds: Medications Discontinued Medications Generic Name Dose Route Start Last Admin Trade Name Freq PRN Reason Stop Dose Admin Albuterol/Ipratropium 3 ml 05/04/20 00:47 05/04/20 00:56 Duoneb 3.0-0.5 Mg/3 Ml NEB 05/04/20 00:48 3 ml ONETIME ONE Administration - Re-Assessments/Exams Free Text/Narrative Re-Assessment/Exam: 05/04/20 00:54 At this time, the patient is more comfortable than at home. She is wheezing and tight. I will give her DuoNeb treatments and see how she feels afterwards. Given her history and everything else that has gone on recently, she will be tested for COVID-19. 05/04/20 00:59 Portable chest x-ray shows cardiomegaly but no acute changes with in lung architecture. 05/04/20 03:30 Patient was given a DuoNeb treatment which decreased her wheezing and work of breathing. When I returned to the room later to review her findings, she was sleeping comfortably wearing nasal oxygen. I discussed that I did not see anything alarming tonight. Her troponin is somewhat elevated but she has absolutely no chest pain and I believe is a reflection of her creatinine. She is ready to go home! She feels fine and does not wish any additional treatment tonight. I recommend she continue current medications and cares including using her oxygen and using her nebulizer at home, twice a day is what has been recommended to her per her pulmonary physician. If she feels worse in any way she can return to the emergency department. Departure - Departure Time of Disposition: 03:01 Disposition: Home, Self-Care 01 Clinical Impression: Hypoxemia Exacerbation of asthma Qualifiers: Asthma severity: mild Asthma persistence: intermittent Qualified Code(s): J45.21 - Mild intermittent asthma with (acute) exacerbation - Discharge Information Instructions: Asthma, Adult, Hypoxemia Referrals: PCP,None [Primary Care Provider] - Forms: ED Department Discharge Additional Instructions: Continue current medications and cares. Use oxygen as directed. Use new nebulizer as directed. If feeling worse in any way, return to emergency department. Sepsis Event Note (ED) - Focused Exam Vital Signs: Vital Signs Temp Pulse Resp BP Pulse Ox 05/04/20 02:30 71 18 117/36 L 96 05/04/20 02:00 73 21 H 68/41 L 89 L 05/04/20 01:30 70 16 105/37 L 93 L 05/04/20 01:00 68 11 L 89/30 L 93 L 05/04/20 00:23 37.0 C 70 16 88/45 L 96 05/04/20 00:21 37.0 C 70 16 88/45 L 96 - My Orders Last 24 Hours: My Active Orders 05/04/20 00:22 CORONAVIRUS COVID-19, BART Stat EKG 12 Lead [EK] Routine 05/04/20 00:24 EKG Documentation Completion [RC] ASDIRECTED 05/04/20 00:32 Chest 1V Frontal [CR] Stat 05/04/20 00:47 RT Aerosol Therapy [RC] ASDIRECTED - Assessment/Plan Last 24 Hours: My Active Orders 05/04/20 00:22 CORONAVIRUS COVID-19, BART Stat EKG 12 Lead [EK] Routine 05/04/20 00:24 EKG Documentation Completion [RC] ASDIRECTED 05/04/20 00:32 Chest 1V Frontal [CR] Stat 05/04/20 00:47 RT Aerosol Therapy [RC] ASDIRECTED
[2020-05-04] MEDS ORDERED: Albuterol/Ipratropium 3.0-0.5 MG/3 ML Neb Soln NEB ONE (00:47)
[2020-05-04 03:01] VITALS: BP 117/36; PULSE 71
--- NOTE | 2020-05-05 09:39 | CR ---
CHEST: Portable 05/04/2020 at 1:03 AM CLINICAL HISTORY:Dyspnea COMPARISON:December 2017 FINDINGS: Heart is enlarged. Pulmonary vascular is normal. No infiltrate, effusion or pneumothorax is seen. Detail is limited due to patient body habitus. Impression: Cardiomegaly No acute cardiopulmonary process
== END 2020-05-04 03:35 | disposition home or self-care (01) ==
LOC: JP.ED 00:09
DX: J45.21 Mild intermittent asthma with (acute) exacerbation (principal); R09.02 Hypoxemia; E66.9 Obesity, unspecified; F41.9 Anxiety disorder, unspecified; F32.9 Major depressive disorder, single episode, unspecified; E11.40 Type 2 diabetes mellitus with diabetic neuropathy, unspecified; I10 Essential (primary) hypertension; E78.00 Pure hypercholesterolemia, unspecified; I25.10 Atherosclerotic heart disease of native coronary artery without angina pectoris; I25.2 Old myocardial infarction; Z95.5 Presence of coronary angioplasty implant and graft; Z88.1 Allergy status to other antibiotic agents; Z90.710 Acquired absence of both cervix and uterus; Z98.890 Other specified postprocedural states; Z79.02 Long term (current) use of antithrombotics/antiplatelets; Z79.4 Long term (current) use of insulin; Z79.82 Long term (current) use of aspirin; Z79.899 Other long term (current) drug therapy; Z68.42 Body mass index [BMI] 45.0-49.9, adult
CPT/HCPCS: 71045; 80053; 82550; 84484; 85025; 85379; 85610; 93005; 94640; 99285; U0002; 93010; J7620-GY

== ENCOUNTER 2020-09-29 10:49 | Emergency (ER) | payer MEDICARE, BC ==
[2020-09-29 11:45] VITALS: BP 101/52; PULSE 70
[2020-09-29] MEDS ORDERED: Acetaminophen/oxyCODONE 325-5 MG Tab PO STA (12:00)
--- NOTE | 2020-09-29 12:01 | EDM.PDOC ---
ED HPI GENERAL MEDICAL PROBLEM - General Chief Complaint: General Stated Complaint: CHEST PAIN LT SIDE VIA NORTH Time Seen by Provider: 09/29/20 11:50 Source of Information: Reports: Patient, Old Records, RN History Limitations: Reports: No Limitations - History of Present Illness INITIAL COMMENTS - FREE TEXT/NARRATIVE: 70 yo dialysis patient presents with a L breast lump that is getting more painful and larger over time with recent acceleration of both. Has not been seen for this problem. Had an appt to be seen today in the clinic for this and decided to call and ambulance and come to the ER. Does not walk. Is also being worked up for intermittent blood per rectum with a colonoscopy scheduled. Thinks the breast lump has been present for 6 mos. Is a dialysis patient, next dialysis tomorrow. Onset: Gradual Duration: Week(s): ( approx 6 mos.), Getting Worse Location: Reports: Chest (L breast) Quality: Reports: Ache Severity: Moderate Improves with: Reports: None Worsens with: Reports: Other (touching area) Context: Reports: Other (See HPI) Associated Symptoms: Reports: No Other Symptoms Treatments CAR FRAMER: Reports: Other (see below) (none) Left Breast Pain Score (Numeric/FACES): 8 - Related Data Allergies Allergy/AdvReac Type Severity Reaction Status Date / Time vancomycin Allergy Hives Verified 08/25/20 09:20 Home Meds: Home Meds Insulin Glarg,Human.Rec.Analog [Lantus Solostar] 60 unit SQ BID 08/08/15 [History] Sertraline [Zoloft] 100 mg PO DAILY 08/08/15 [History] Cyanocobalamin (Vitamin B-12) [B-12] 1,000 mcg PO DAILY 12/29/15 [History] Gabapentin [Neurontin] 100 mg PO BID 12/29/15 [History] Insulin Aspart [Novolog Flexpen] 16 unit SQ TID 12/29/15 [History] Aspirin 81 mg PO DAILY 06/29/16 [History] Epoetin Kevin [Epogen] 0.2 ml SUBCUT ASDIRECTED 06/29/16 [History] Folic Acid 1 mg PO DAILY 04/17/18 [History] Metoprolol Succinate [Toprol XL] 50 mg PO DAILY 04/17/18 [History] Nitroglycerin [Nitrostat] 0.4 mg SL Q5M PRN 08/28/18 [History] Ferric Citrate [Auryxia] 2 tab PO TID 07/03/19 [History] Pantoprazole Sodium [Protonix] 40 mg PO DAILY 05/04/20 [History] Warfarin Sodium 5 mg PO DAILY 05/04/20 [History] Acetaminophen/oxyCODONE [Percocet 325-5 MG] 1 each PO Q4H PRN #16 tab 09/29/20 [Rx] Arformoterol [Brovana] 1 puff INH BID 09/29/20 [History] Budesonide [Pulmicort] 0.5 mg IH BID 09/29/20 [History] Warfarin [Coumadin] 2.5 mg PO DAILY 09/29/20 [History] Past Medical History HEENT History: Reports: Cataract, Impaired Vision, Macular Degeneration Cardiovascular History: Reports: CAD, High Cholesterol, Hypertension, [place], Stents Respiratory History: Reports: Asthma, COPD, Sleep Apnea Other Respiratory History: uses Cpap. 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 Draining. Healed . - Infectious Disease History Infectious Disease History: Reports: Chicken Pox, Measles, MRSA, Shingles - Past Surgical History HEENT Surgical History: Reports: Cataract Surgery, Laser Surgery Cardiovascular Surgical History: Reports: Coronary Artery Stent Respiratory Surgical History: Reports: None GI Surgical History: Reports: Colonoscopy Female Surgical History: Reports: Hysterectomy Endocrine Surgical History: Reports: None Neurological Surgical History: Reports: None Musculoskeletal Surgical History: Reports: Amputation Other Musculoskeletal Surgeries/Procedures:: scheduled for right leg BKA Dermatological Surgical History: Reports: None Social & Family History - Family History Family Medical History: No Pertinent Family History - Tobacco Use Tobacco Use Status *Q: Never Tobacco User - Caffeine Use Caffeine Use: Reports: Coffee - Recreational Drug Use Recreational Drug Use: No ED ROS GENERAL - Review of Systems Review Of Systems: See Below Constitutional: Reports: No Symptoms HEENT: Reports: No Symptoms Respiratory: Reports: No Symptoms Cardiovascular: Reports: No Symptoms Endocrine: Reports: Other (very large L breast mass, no redness or increased warmth. ) GI/Abdominal: Reports: No Symptoms Musculoskeletal: Reports: No Symptoms Skin: Reports: No Symptoms Neurological: Reports: No Symptoms ED EXAM, GENERAL - Physical Exam Exam: See Below Exam Limited By: No Limitations General Appearance: Alert, WD/WN, No Apparent Distress Respiratory/Chest: Other (large L breast mass, no redness or increased warmth. ) Back Exam: Normal Inspection Neurological: Alert, Oriented, CN II-XII Intact, Normal Cognition Psychiatric: Normal Affect, Normal Mood Skin Exam: Warm, Dry, Intact, Normal Color, No Rash Course - Vital Signs Text/Narrative:: case discussed with Dr. Shukla @ [facility] Last Recorded V/S: Last Vital Signs Temp 35.3 C L 09/29/20 10:52 Pulse 70 09/29/20 11:18 Resp 16 09/29/20 11:18 BP 101/52 L 09/29/20 11:18 Pulse Ox 100 09/29/20 11:18 - Orders/Labs/Meds Orders: Active Orders 24 hr Category Date Time Status Breast Limited Lt [US] Stat Exams 09/29/20 12:46 Ordered EKG 12 Lead [EK] Routine Ther 09/29/20 11:54 Stop Req Meds: Medications Discontinued Medications Generic Name Dose Route Start Last Admin Trade Name Freq PRN Reason Stop Dose Admin Oxycodone/Acetaminophen 1 tab 09/29/20 12:00 09/29/20 12:04 Percocet 325-5 Mg PO 09/29/20 12:01 1 tab ONETIME STA Administration - Radiology Interpretation Free Text/Narrative:: L breast ultrasound- Departure - Departure Time of Disposition: 14:03 Disposition: Home, Self-Care 01 Condition: Fair Clinical Impression: Breast mass, left - Discharge Information *PRESCRIPTION DRUG MONITORING PROGRAM REVIEWED*: No *COPY OF PRESCRIPTION DRUG MONITORING REPORT IN PATIENT KISHAN: No Prescriptions: Acetaminophen/oxyCODONE [Percocet 325-5 MG] 1 each PO Q4H PRN #16 tab PRN Reason: Pain Referrals: PCP,None [Primary Care Provider] - Forms: ED Department Discharge Additional Instructions: APPOINTMENT WITH DR SHUKLA AT [facility] IN [place] ON TuesdayOctober AT 3PM ARRIVE AT 2:45 TO REGISTER Care Plan Goals: Take Percocet as directed for pain relief. This medication can be constipating so take some type of fiber product or stool softener. See Dr. Shukla as directed. If you need to, you can see your primary care provider for med refills or dosage adjustments. Sepsis Event Note (ED) - Evaluation Sepsis Screening Result: No Definite Risk - Focused Exam Vital Signs: Vital Signs Temp Pulse Resp BP Pulse Ox 09/29/20 11:18 70 16 101/52 L 100 09/29/20 10:52 35.3 C L 69 16 114/33 L 99 - My Orders Last 24 Hours: My Active Orders 09/29/20 11:54 EKG 12 Lead [EK] Routine 09/29/20 12:46 Breast Limited Lt [US] Stat - Assessment/Plan Last 24 Hours: My Active Orders 09/29/20 11:54 EKG 12 Lead [EK] Routine 09/29/20 12:46 Breast Limited Lt [US] Stat
--- NOTE | 2020-09-29 14:44 | US ---
Breast Limited Lt CLINICAL HISTORY: Enlarging left breast mass FINDINGS: The breast is diffusely firm. There is an ill-defined heterogeneous echotexture throughout the entire left breast without measurable margins. No significant internal flow is identified. IMPRESSION: Diffusely abnormal echotexture throughout the entire left breast suggesting a diffuse infiltrating process. Carcinoma is suspected Mammogram should be performed as a part of the workup for the left breast abnormality. Breast MRI is also a consideration BI-RADS 0: Incomplete. Additional imaging or information needed.
== END 2020-09-29 14:42 | disposition home or self-care (01) ==
LOC: JP.ED 10:49
DX: N63.0 Unspecified lump in unspecified breast (principal); E11.40 Type 2 diabetes mellitus with diabetic neuropathy, unspecified; F41.9 Anxiety disorder, unspecified; F32.9 Major depressive disorder, single episode, unspecified; J45.909 Unspecified asthma, uncomplicated; E78.00 Pure hypercholesterolemia, unspecified; I10 Essential (primary) hypertension; I25.2 Old myocardial infarction; E66.9 Obesity, unspecified; Z95.5 Presence of coronary angioplasty implant and graft; Z79.4 Long term (current) use of insulin; I25.10 Atherosclerotic heart disease of native coronary artery without angina pectoris; Z79.01 Long term (current) use of anticoagulants; Z79.82 Long term (current) use of aspirin; Z79.899 Other long term (current) drug therapy; Z88.1 Allergy status to other antibiotic agents; Z68.42 Body mass index [BMI] 45.0-49.9, adult
CPT/HCPCS: 76642; 99284; A9270

== ENCOUNTER 2020-09-30 20:24 | Emergency (ER) | payer MEDICARE, BC ==
[2020-09-30] MEDS ORDERED: Lactated Ringers 1,000 ML IV SCH (20:45)
--- NOTE | 2020-09-30 20:53 | EDM.PDOC ---
ED HPI GENERAL MEDICAL PROBLEM - General Chief Complaint: Respiratory Problem Stated Complaint: [facility] Time Seen by Provider: 09/30/20 20:30 Source of Information: Reports: Patient, Old Records, RN History Limitations: Reports: Other (poor historian) - History of Present Illness INITIAL COMMENTS - FREE TEXT/NARRATIVE: 70 yo female was seen here yesterday for a L breast mass that had been getting bigger for about 6 mos. Today she awoke feeling ill. She reports weakness and poor appetite. Has one leg that has been removed surgically so arrives via EMS with reported low BP in the field. Denies any new pain. Was given Percocet for pain when in the ER yesterday. No fever or GI changes. Onset: Today, Gradual Onset Date: 09/30/20 Onset Time: 08:00 Duration: Hour(s):, Getting Worse Location: Reports: Generalized Quality: Reports: Other (new pain not reported) Severity: Moderate Improves with: Reports: None Worsens with: Reports: Other (time) Context: Reports: Other (See HPI) Associated Symptoms: Reports: Loss of Appetite, Malaise, Weakness (generalized). 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 (see below) (none) - Related Data Allergies Allergy/AdvReac Type Severity Reaction Status Date / Time vancomycin Allergy Hives Verified 09/30/20 20:30 Home Meds: Home Meds Insulin Glarg,Human.Rec.Analog [Lantus Solostar] 60 unit SQ BID 08/08/15 [History] Sertraline [Zoloft] 100 mg PO DAILY 08/08/15 [History] Cyanocobalamin (Vitamin B-12) [B-12] 1,000 mcg PO DAILY 12/29/15 [History] Gabapentin [Neurontin] 100 mg PO BID 12/29/15 [History] Insulin Aspart [Novolog Flexpen] 16 unit SQ TID 12/29/15 [History] Aspirin 81 mg PO DAILY 06/29/16 [History] Epoetin Kevin [Epogen] 0.2 ml SUBCUT ASDIRECTED 06/29/16 [History] Folic Acid 1 mg PO DAILY 04/17/18 [History] Metoprolol Succinate [Toprol XL] 50 mg PO DAILY 04/17/18 [History] Nitroglycerin [Nitrostat] 0.4 mg SL Q5M PRN 08/28/18 [History] Ferric Citrate [Auryxia] 2 tab PO TID 07/03/19 [History] Pantoprazole Sodium [Protonix] 40 mg PO DAILY 05/04/20 [History] Warfarin Sodium 5 mg PO DAILY 05/04/20 [History] Acetaminophen/oxyCODONE [Percocet 325-5 MG] 1 each PO Q4H PRN #16 tab 09/29/20 [Rx] Arformoterol [Brovana] 1 puff INH BID 09/29/20 [History] Budesonide [Pulmicort] 0.5 mg IH BID 09/29/20 [History] Warfarin [Coumadin] 2.5 mg PO DAILY 09/29/20 [History] Past Medical History HEENT History: Reports: Cataract, Impaired Vision, Macular Degeneration Cardiovascular History: Reports: CAD, High Cholesterol, Hypertension, [place], Stents Respiratory History: Reports: Asthma, COPD, Sleep Apnea Other Respiratory History: uses Cpap. 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 Draining. Healed . - Infectious Disease History Infectious Disease History: Reports: Chicken Pox, Measles, MRSA, Shingles - Past Surgical History Head Surgeries/Procedures: Reports: None HEENT Surgical History: Reports: Cataract Surgery, Laser Surgery Cardiovascular Surgical History: Reports: Coronary Artery Stent Respiratory Surgical History: Reports: None GI Surgical History: Reports: Colonoscopy Female Surgical History: Reports: Hysterectomy Endocrine Surgical History: Reports: None Neurological Surgical History: Reports: None Musculoskeletal Surgical History: Reports: Amputation Other Musculoskeletal Surgeries/Procedures:: scheduled for right leg BKA Dermatological Surgical History: Reports: None Social & Family History - Family History Family Medical History: No Pertinent Family History - Tobacco Use Tobacco Use Status *Q: Former Tobacco User Used Tobacco, but Quit: Yes Month/Year Tobacco Last Used: 1994 Second Hand Smoke Exposure: No - Caffeine Use Caffeine Use: Reports: Coffee ED ROS GENERAL - Review of Systems Review Of Systems: See Below Constitutional: Reports: Malaise, Weakness. Denies: Fever HEENT: Reports: No Symptoms Respiratory: Reports: No Symptoms Cardiovascular: Reports: No Symptoms Endocrine: Reports: No Symptoms GI/Abdominal: Reports: No Symptoms : Reports: No Symptoms Musculoskeletal: Reports: No Symptoms Skin: Reports: No Symptoms Neurological: Reports: No Symptoms Psychiatric: Reports: No Symptoms ED EXAM, GENERAL - Physical Exam Exam: See Below Exam Limited By: No Limitations General Appearance: Alert, WD/WN, Mild Distress, Obese Eye Exam: Bilateral Eye: Normal Inspection Ears: Normal External Exam, Normal Canal, Hearing Grossly Normal Ear Exam: Bilateral Ear: Auricle Normal, Canal Normal Nose: Normal Inspection, No Blood Throat/Mouth: Normal Inspection, Normal Lips, Normal Oropharynx, Normal Voice, No Airway Compromise Head: Atraumatic, Normocephalic Neck: Normal Inspection Respiratory/Chest: No Respiratory Distress, Lungs Clear, Normal Breath Sounds, No Accessory Muscle Use, Other (L breast mass present) Cardiovascular: Regular Rate, Rhythm, No Edema, Tachycardia GI/Abdominal: Normal Bowel Sounds, Soft, Non-Tender, No Distention Back Exam: Normal Inspection. No: CVA Tenderness (R), CVA Tenderness (L) Extremities: Normal Inspection, Normal Range of Motion, Non-Tender, No Pedal Edema Neurological: Alert, Oriented, CN II-XII Intact, Normal Cognition, No Motor/Sensory Deficits Psychiatric: Normal Affect, Normal Mood Skin Exam: Warm, Dry, Intact, Normal Color, No Rash #1 Interpretation EKG Date: 09/30/20 Time: 20:45 Rhythm: NSR Rate (Beats/Min): 100 [place]: Normal P-Wave: Present QRS: LBBB ST-T: Normal QT: Normal Comparison: Change From Previous EKG (rate increase only) Course - Vital Signs Text/Narrative:: [facility] , Dr. Valentin accepted @ Last Recorded V/S: Last Vital Signs Temp 36.6 C 09/30/20 20:36 Pulse 91 09/30/20 21:31 Resp 17 09/30/20 21:31 BP 95/26 L 09/30/20 21:31 Pulse Ox 94 L 09/30/20 21:31 - Orders/Labs/Meds Orders: Active Orders 24 hr Category Date Time Status Cardiac Monitoring [RC] .As Directed Care 09/30/20 20:33 Active EKG Documentation Completion [RC] ASDIRECTED Care 09/30/20 20:33 Active [place] Catheter Insertion [Insert Urinary Catheter] [OM. Care 09/30/20 20:45 Ordered PC] Q24H Urinary Catheter Assessment [RC] ASDIRECTED Care 09/30/20 20:33 Active CULTURE URINE [RM] Stat Lab 09/30/20 21:57 Received Sodium Chloride 0.9% [Normal Saline] 1,000 ml Med 09/30/20 22:00 Active IV ASDIRECTED cefTRIAXone [Rocephin] 1 gm Med 09/30/20 21:49 Active Sodium Chloride 0.9% [Normal Saline] 50 ml IV ONETIME EKG 12 Lead [EK] Routine Ther 09/30/20 20:33 Ordered Medication Orders Ceftriaxone Sodium 1 gm/ (Sodium Chloride) 50 mls @ 100 mls/hr IV ONETIME ONE Stop: 09/30/20 22:18 Last Admin: 09/30/20 22:07 Dose: 100 mls/hr Documented by: RADAMES Sodium Chloride (Normal Saline) 1,000 mls @ 50 mls/hr IV ASDIRECTED [facility] Last Admin: 09/30/20 22:06 Dose: 50 mls/hr Documented by: RADAMES Labs: Laboratory Tests 09/30/20 09/30/20 09/30/20 Range/Units 20:33 20:33 20:33 WBC 10.5 (4.5-11.0) K/uL RBC 2.85 L (3.30-5.50) M/uL Hgb 9.1 L D (12.0-15.0) g/dL Hct 30.2 L (36.0-48.0) % MCV 106 H (80-98) fL MCH 32 H (27-31) pg MCHC 30 L (32-36) % Plt Count 294 (150-400) K/uL PT (9.5-12.0) sec INR (0.80-1.20) D-Dimer, Quantitative (0.0-500.0) ng/mL Sodium 132 L (140-148) mmol/L Potassium 4.5 (3.6-5.2) mmol/L Chloride 91 L (100-108) mmol/L Carbon Dioxide 34 H (21-32) mmol/L Anion Gap 11.5 (5.0-14.0) mmol/L BUN 20 H (7-18) mg/dL Creatinine 3.7 H* (0.6-1.0) mg/dL Est Cr Clr Drug Dosing 13.24 mL/min Estimated GFR (MDRD) 12 L (>60) Glucose 210 H (74-106) mg/dL Lactic Acid 2.9 H (0.4-2.0) mmol/L Calcium 8.6 (8.5-10.1) mg/dL Troponin I 0.119 H* (0.000-0.056) ng/mL Urine Color (YELLOW) Urine Appearance (CLEAR) Urine pH (5.0-8.0) Ur Specific [place] (1.008-1.030) Urine Protein (NEGATIVE) mg/dL Urine Glucose (UA) (NEGATIVE) mg/dL Urine Ketones (NEGATIVE) mg/dL Urine Occult Blood (NEGATIVE) Urine Nitrite (NEGATIVE) Urine Bilirubin (NEGATIVE) Urine Urobilinogen (0.2-1.0) EU/dL Ur Leukocyte Esterase (NEGATIVE) Urine RBC (0-5) Urine WBC (0-5) Ur Epithelial Cells Amorphous Sediment Urine Bacteria Urine Mucus SARS CoV-2 RNA Rapid ABRT 09/30/20 09/30/20 09/30/20 Range/Units 21:05 21:05 21:13 WBC (4.5-11.0) K/uL RBC (3.30-5.50) M/uL Hgb (12.0-15.0) g/dL Hct (36.0-48.0) % MCV (80-98) fL MCH (27-31) pg MCHC (32-36) % Plt Count (150-400) K/uL PT 18.1 H (9.5-12.0) sec INR 1.68 H D (0.80-1.20) D-Dimer, Quantitative 749.24 H (0.0-500.0) ng/mL Sodium (140-148) mmol/L Potassium (3.6-5.2) mmol/L Chloride (100-108) mmol/L Carbon Dioxide (21-32) mmol/L Anion Gap (5.0-14.0) mmol/L BUN (7-18) mg/dL Creatinine (0.6-1.0) mg/dL Est Cr Clr Drug Dosing mL/min Estimated GFR (MDRD) (>60) Glucose (74-106) mg/dL Lactic Acid (0.4-2.0) mmol/L Calcium (8.5-10.1) mg/dL Troponin I (0.000-0.056) ng/mL Urine Color (YELLOW) Urine Appearance (CLEAR) Urine pH (5.0-8.0) Ur Specific [place] (1.008-1.030) Urine Protein (NEGATIVE) mg/dL Urine Glucose (UA) (NEGATIVE) mg/dL Urine Ketones (NEGATIVE) mg/dL Urine Occult Blood (NEGATIVE) Urine Nitrite (NEGATIVE) Urine Bilirubin (NEGATIVE) Urine Urobilinogen (0.2-1.0) EU/dL Ur Leukocyte Esterase (NEGATIVE) Urine RBC (0-5) Urine WBC (0-5) Ur Epithelial Cells Amorphous Sediment Urine Bacteria Urine Mucus SARS CoV-2 RNA Rapid BART Negative 09/30/20 Range/Units 21:31 WBC (4.5-11.0) K/uL RBC (3.30-5.50) M/uL Hgb (12.0-15.0) g/dL Hct (36.0-48.0) % MCV (80-98) fL MCH (27-31) pg MCHC (32-36) % Plt Count (150-400) K/uL PT (9.5-12.0) sec INR (0.80-1.20) D-Dimer, Quantitative (0.0-500.0) ng/mL Sodium (140-148) mmol/L Potassium (3.6-5.2) mmol/L Chloride (100-108) mmol/L Carbon Dioxide (21-32) mmol/L Anion Gap (5.0-14.0) mmol/L BUN (7-18) mg/dL Creatinine (0.6-1.0) mg/dL Est Cr Clr Drug Dosing mL/min Estimated GFR (MDRD) (>60) Glucose (74-106) mg/dL Lactic Acid (0.4-2.0) mmol/L Calcium (8.5-10.1) mg/dL Troponin I (0.000-0.056) ng/mL Urine Color Brown A (YELLOW) Urine Appearance Cloudy A (CLEAR) Urine pH 7.5 (5.0-8.0) Ur Specific [place] 1.020 (1.008-1.030) Urine Protein >=300 H (NEGATIVE) mg/dL Urine Glucose (UA) Negative (NEGATIVE) mg/dL Urine Ketones Negative (NEGATIVE) mg/dL Urine Occult Blood Large H (NEGATIVE) Urine Nitrite Negative (NEGATIVE) Urine Bilirubin Small H (NEGATIVE) Urine Urobilinogen 0.2 (0.2-1.0) EU/dL Ur Leukocyte Esterase Large H (NEGATIVE) Urine RBC Semi-packed H (0-5) Urine WBC Semi-packed H (0-5) Ur Epithelial Cells Not seen Amorphous Sediment Many Urine Bacteria Not seen Urine Mucus Not seen SARS CoV-2 RNA Rapid BART Meds: Medications Generic Name Dose Route Start Last Admin Trade Name Freq PRN Reason Stop Dose Admin Ceftriaxone Sodium 1 gm/ 50 mls @ 100 mls/hr 09/30/20 21:49 09/30/20 22:07 Sodium Chloride IV 09/30/20 22:18 100 mls/hr ONETIME ONE Administration Sodium Chloride 1,000 mls @ 50 mls/hr 09/30/20 22:00 09/30/20 22:06 Normal Saline IV 50 mls/hr ASDIRECTED EDUARD Administration Discontinued Medications Generic Name Dose Route Start Last Admin Trade Name Freq PRN Reason Stop Dose Admin Lactated Ringer's 1,000 mls @ 1,000 mls/hr 09/30/20 20:45 09/30/20 20:47 Ringers, Lactated IV 1,000 mls/hr ASDIRECTED EDUARD Administration Departure - Departure Time of Disposition: 22:30 Disposition: DC/Tfer to Acute Hospital 02 Condition: Poor Clinical Impression: Dialysis patient, Chronic anemia UTI (urinary tract infection) Qualifiers: Urinary tract infection type: site unspecified Hematuria presence: with hematu ninfa Qualified Code(s): N39.0 - Urinary tract infection, site not specified Hypotension Qualifiers: Hypotension type: unspecified hypotension type Qualified Code(s): I95.9 - Hypotension, unspecified - Discharge Information Referrals: Ryan Angulo [facility] [Primary Care Provider] - Forms: ED Department Discharge Sepsis Event Note (ED) - Evaluation Sepsis Screening Result: No Definite Risk - Focused Exam Vital Signs: Vital Signs Temp Pulse Resp BP Pulse Ox 09/30/20 21:31 91 17 95/26 L 94 L 09/30/20 20:54 99 16 96/39 L 93 L 09/30/20 20:37 102 H 12 109/91 H 89 L 09/30/20 20:36 36.6 C 96 17 74/52 L 91 L 09/30/20 20:24 36.6 C 96 17 74/52 L 91 L - My Orders Last 24 Hours: My Active Orders 09/30/20 20:33 Cardiac Monitoring [RC] .As Directed EKG Documentation Completion [RC] ASDIRECTED Urinary Catheter Assessment [RC] ASDIRECTED EKG 12 Lead [EK] Routine 09/30/20 20:45 [place] Catheter Insertion [Insert Urinary Catheter] [OM.PC] Q24H 09/30/20 21:49 cefTRIAXone [Rocephin] 1 gm Sodium Chloride 0.9% [Normal Saline] 50 ml IV ONETIME 09/30/20 21:57 CULTURE URINE [RM] Stat 09/30/20 22:00 Sodium Chloride 0.9% [Normal Saline] 1,000 ml IV ASDIRECTED - Assessment/Plan Last 24 Hours: My Active Orders 09/30/20 20:33 Cardiac Monitoring [RC] .As Directed EKG Documentation Completion [RC] ASDIRECTED Urinary Catheter Assessment [RC] ASDIRECTED EKG 12 Lead [EK] Routine 09/30/20 20:45 [place] Catheter Insertion [Insert Urinary Catheter] [OM.PC] Q24H 09/30/20 21:49 cefTRIAXone [Rocephin] 1 gm Sodium Chloride 0.9% [Normal Saline] 50 ml IV ONETIME 09/30/20 21:57 CULTURE URINE [RM] Stat 09/30/20 22:00 Sodium Chloride 0.9% [Normal Saline] 1,000 ml IV ASDIRECTED
[2020-09-30] MEDS ORDERED: cefTRIAXone 1 GM in Sodium Chloride 0.9% 50 ML IV ONE (21:49)
[2020-09-30] MEDS ORDERED: Sodium Chloride 0.9% 1,000 ML IV SCH (22:00)
[2020-09-30 23:07] VITALS: BP 89/71; PULSE 86
== END 2020-10-01 00:45 ==
LOC: JP.ED 20:24
DX: N39.0 Urinary tract infection, site not specified (principal); I95.9 Hypotension, unspecified; D64.9 Anemia, unspecified; N17.9 Acute kidney failure, unspecified; I25.10 Atherosclerotic heart disease of native coronary artery without angina pectoris; I10 Essential (primary) hypertension; I25.2 Old myocardial infarction; J44.9 Chronic obstructive pulmonary disease, unspecified; E11.40 Type 2 diabetes mellitus with diabetic neuropathy, unspecified; F41.9 Anxiety disorder, unspecified; F32.9 Major depressive disorder, single episode, unspecified; E66.9 Obesity, unspecified; Z68.42 Body mass index [BMI] 45.0-49.9, adult; Z99.2 Dependence on renal dialysis; Z87.891 Personal history of nicotine dependence; Z88.1 Allergy status to other antibiotic agents; Z79.4 Long term (current) use of insulin; Z79.82 Long term (current) use of aspirin; Z79.01 Long term (current) use of anticoagulants; Z79.899 Other long term (current) drug therapy; Z20.828 Contact with and (suspected) exposure to other viral communicable diseases
CPT/HCPCS: 36415; 51701; 80048; 81001; 83605; 84484; 85027; 85379; 85610; 87086; 93005; 96365; 99285; J0696; J7030; J7050; J7120; U0002